=== PATIENT | female | born 1955 | race Caucasian/White ===

== ENCOUNTER 2016-08-30 07:20 | Inpatient (IN) | payer BC, OTHER ==
[~2016-08-30] VITALS: Ht 152.4 cm; Wt 79.2 kg
[~2016-08-30 07:20] MED LIST: ACCL20 PO; ACET-1256 PO; ALLDSR/24 PO; CALCTAB5 PO; GLC500 PO; IBUP-1451 PO; LEVA1.25 INH; LEVAAER2 INH; LORA-741 PO; MOME200A INH; MULT-506 PO; OMAL150S SC; PANT40TA PO; PRED10TA PO; TRAM-10 PO
[2016-08-30] MEDS ORDERED: AMPICILLIN/SULBACTAM SOD INJ 3,000 MG in SODIUM CHLORIDE 0.9% 100ML 100 ML IV STA (07:45)
[2016-08-30 08:17] LABS: BASO % 0.1 %; BASO ABS # 0.02 K/uL (0-0.2); COMPLETE YES; EOS % 1.6 %; HEMATOCRIT 38.4 % (37-47); IG% 0.4 %; LYMPH % 15.9 %; LYMPH ABS # 2.16 K/uL (1.2-3.4); MEAN CELL VOLUME 87.3 fL (80-100); MEAN CORPUSCULAR HEMOGLOBIN 29.3 pg (25-34); MEAN CORPUSCULAR HGB CONC 33.6 g/dl (32-36); MEAN PLATELET VOLUME 8.6 fL (7.4-10.4); MONO % 8.4 %; NEUT % 73.6 %; PLATELET COUNT 338 K/uL (130-400); WHITE BLOOD COUNT 13.62 K/uL (4.8-10.8)
[2016-08-30] MEDS ORDERED: CALC-354 PO (08:29)
[2016-08-30] MEDS ORDERED: FEXO1TAB58 PO (08:31)
--- NOTE | 2016-08-30 08:33 | DIAGNOSTIC IMAGING REPORT ---
RIGHT HAND 3 VIEWS CLINICAL HISTORY: Dog bite injury. Infection. FINDINGS: 3 views of the right hand are obtained. No prior studies are available for comparison at the time of dictation. The skeletal structures are osteopenic. No fracture is seen. There is negative ulnar variance. Mild osteoarthritic change is present involving the interphalangeal joints, the first metacarpophalangeal joint, and the first carpometacarpal joint. No erosive change is identified. There is soft tissue edema overlying the dorsal aspect of the hand. No subcutaneous gas is seen. No radiodense foreign body is identified. IMPRESSION: 1. Soft tissue edema with no acute bony abnormality seen in the right hand. 2. Osteopenia and arthritic change as above. Electronically signed by: Jonathan Juarez M.D. 08/30/2016 8:32 AM Dictated Date/Time: 08/30/2016 8:30 AM
[2016-08-30] MEDS ORDERED: [UNRECOGNIZED DRUG - CODE] PO (08:34)
[2016-08-30 08:37] LABS: BUN/CREATININE RATIO 23.4 (10-20); CREATININE 0.8 mg/dl (0.60-1.20); POTASSIUM 3.6 mmol/L (3.5-5.1)
[2016-08-30] MEDS ORDERED: ACCL20 PO (08:39)
[2016-08-30] MEDS ORDERED: VANCOMYCIN INJ 1,900 MG in SODIUM CHLORIDE 0.9% 250ML 250 ML IV STA (08:41)
[2016-08-30] MEDS ORDERED: VANCOMYCIN INJ 1,900 MG in SODIUM CHLORIDE 0.9% 500ML 500 ML IV SCH (08:41)
[2016-08-30] MEDS ORDERED: LEVA45AE INH (08:43)
[2016-08-30] MEDS ORDERED: LEVA1.258 INH (08:43)
[2016-08-30] MEDS ORDERED: ZOLP10TA6 PO (08:49)
[2016-08-30] MEDS ORDERED: FERR1TAB61 PO (08:49)
[2016-08-30] MEDS ORDERED: AMOX875T PO (08:51)
[2016-08-30] MEDS ORDERED: SUMA50TA15 PO (08:52)
[2016-08-30] MEDS ORDERED: SUMATRIPTAN SUCCINATE 50 MG TAB PO PRN (09:45)
[2016-08-30] MEDS ORDERED: LORAZEPAM 0.5 MG TAB PO PRN (09:45)
[2016-08-30] MEDS ORDERED: LEVALBUTEROL 1.25MG/3ML NEB INH PRN (09:45)
[2016-08-30] MEDS ORDERED: LEValbuterol HFA 15GM INHALER INH PRN (09:45)
[2016-08-30 09:49] VITALS: BP 139/82; PULSE 96; TEMP 36.5; O2SAT 98; Ht 152.4 cm; Wt 79.2 kg
[2016-08-30] MEDS ORDERED: OPTIRAY 320 IV PRN (10:30)
[2016-08-30 10:32] LABS: ESTIMATED AVERAGE GLUCOSE 103 mg/dl; HA1C FLAG Normal (Normal)
--- NOTE | 2016-08-30 10:34 | History and Physical ---
History & Physical Date & Time of Service: Aug 30, 2016 at 09:57 Chief Complaint: Dog Bite Rt Hand Primary Care Physician: Manuel Rose D.O.Int.Med. History of Present Illness Source: patient This is a 61 yo F with PMHx of allergic asthma, dysmetabolic syndrome, pernicious anemia, s/p R rotator cuff tear, GERD, migraine, osteoarthritis of multiple sites and insomnia who presents after 1 day of outpatient antibiotics for dog bite wound and progression of redness and swelling of the R hand. The patient notes she was bit on Tuesday around 0130 am by her pet budin. She reports the dog is blind and deaf so was unintentional. She went to urgent care yesterday and was prescribed Augmentin 875 mg, first dose taken yesterday at 10am. Since then her right hand has become more painful, redness has extended up to the middle of her forearm, and swelling has worsened; she can no longer make a fist with the hand due to swelling. Pt denies fever, sweats or chills. She denies any other complaints this morning. In the ED the patient was placed on vancomycin, wound culture sent. WBC is mildly elevated at 13.6, + tachycardic upon admission with HR =109, afebrile. She denies fevers at home although has been taking tylenol/ibuprofen around the clock for chronic pain. Past Medical/Surgical History Allergic Asthma Dysmetabolic syndrome GERD Osteoarthritis Insomnia Low back pain Pernicious anemia R rotator cuff tear s/p surgery Migraine Social History Smoking Status: Never Smoker Smokeless Tobacco Use: No Alcohol Use: none Drug Use: none Occupational Status: employed Immunizations History of Influenza Vaccine: N/A History of Tetanus Vaccine?: Yes History of Pneumococcal: Yes History of Hepatitis B Vaccine: Yes Multi-Drug Resistant Organisms History of MDRO: No Allergies Coded Allergies: Cephalosporins (Verified Allergy, Unknown, CEFAZOLIN ALLERGY, 08/30/16) Naproxen (Verified Allergy, Unknown, RASH. SHE TOLERATES MOTRIN., 08/30/16) Sulfa Drugs (Verified Allergy, Unknown, RASH, 08/30/16) Home Medications Scheduled Acetaminophen (Tylenol), 2 TAB PO TID Amoxicillin & Pot Clavulanate (Augmentin 875-125 mg), 1 TAB PO BID Calcium Carbonate-Cholecalcife (Caltrate 600+D), 1 TAB PO DAILY Ferrous Sulfate (Iron), Unknown Dose PO DAILY Fexofenadine-Pseudoephedrine (Cristiana-D 24 Hour Allergy), 1 TAB PO DAILY Ibuprofen Tab (Motrin), 1 TAB PO TID Metformin Hcl (Fortamet), 1,000 MG PO BID Mometasone Furoate-Formoterol (Dulera 200/5 Mcg), 1 AER INH BID Multivitamin (Multivitamin), 1 TAB PO QAM Omalizumab (Xolair), 1 DOSE SC MONTHLY Pantoprazole (Protonix), 40 MG PO QAM Zafirlukast (Zafirlukast), 20 MG PO BID Zolpidem Tartrate (Zolpidem Tartrate), 1 TAB PO HS Scheduled PRN Levalbuterol Hcl (Levalbuterol Hcl), 3 ML INH QID PRN for Shortness of Breath Levalbuterol Tartrate (Levalbuterol Tartrate Hfa), 2 PUFFS INH Q4 PRN for Shortness of Breath Lorazepam (Ativan), 0.5 MG PO HS PRN for Sleep Sumatriptan Succinate (Imitrex), 50 MG PO DAILY PRN for Headache Tramadol (Ultram), 50 MG PO Q8H PRN for Pain Review of Systems Constitutional: No chills, No fever, No sweats ENT: No sore throat, No tinnitus Respiratory: No cough, No shortness of breath, No sputum Cardiovascular: No chest pain, No palpitations Abdomen: No constipation, No diarrhea, No nausea, No pain, No vomiting Musculoskeletal: + joint pain (chronic low back), + problem reported (R hand wound - see HPI), + swelling, No calf pain Genitourinary - Female: No dysuria Neurologic: No numbness/tingling Psychiatric: + anxiety Endocrine: No problem reported (Not diabetic but taking metformin for hyperglycemia associated with previous steriod use for allergic asthma) Physical Exam Vital Signs Date Time Temp Pulse Resp B/P Pulse Ox O2 Delivery O2 Flow Rate FiO2 08/30/16 09:27 88 18 139/82 97 Room Air 08/30/16 07:29 36.5 109 20 151/93 94 Room Air General Appearance: WD/WN, no apparent distress, + obese Head: normocephalic, atraumatic Eyes: PERRL, EOMI ENT: hearing grossly normal, pharynx normal Neck: supple, no JVD Respiratory/Chest: lungs clear, no respiratory distress, no accessory muscle use Cardiovascular: normal peripheral pulses, + tachycardia, + pertinent finding ( regular rhythm. HR= ~90s during examination) Abdomen/GI: normal bowel sounds, non tender, soft Extremities/Musculoskelatal: no calf tenderness, no pedal edema, + pertinent finding (R hand puncture wound on dorsal aspect of the hand overlying second metatarsal, no drainage. + erythema extending from mid forearm to all DIP joints, + pain with palpation and passive/active ROM, + edema of hand and wrist. Margin outlined in black ink. ) Neurologic/Psych: alert, oriented x 3 Skin: normal color, warm/dry Diagnostics Laboratory Results Results Past 24 Hours Test 08/30/16 08:05 Range/Units White Blood Count 13.62 4.8-10.8 K/uL Red Blood Count 4.40 4.2-5.4 M/uL Hemoglobin 12.9 12.0-16.0 g/dL Hematocrit 38.4 37-47 % Mean Corpuscular Volume 87.3 80-100 fL Mean Corpuscular Hemoglobin 29.3 25-34 pg Mean Corpuscular Hemoglobin Concent 33.6 32-36 g/dl Platelet Count 338 130-400 K/uL Mean Platelet Volume 8.6 7.4-10.4 fL Neutrophils (%) (Auto) 73.6 % Lymphocytes (%) (Auto) 15.9 % Monocytes (%) (Auto) 8.4 % Eosinophils (%) (Auto) 1.6 % Basophils (%) (Auto) 0.1 % Neutrophils # (Auto) 10.03 1.4-6.5 K/uL Lymphocytes # (Auto) 2.16 1.2-3.4 K/uL Monocytes # (Auto) 1.14 0.11-0.59 K/uL Eosinophils # (Auto) 0.22 0-0.5 K/uL Basophils # (Auto) 0.02 0-0.2 K/uL RDW Standard Deviation 42.9 36.4-46.3 fL RDW Coefficient of Variation 13.3 11.5-14.5 % Immature Granulocyte % (Auto) 0.4 % Immature Granulocyte # (Auto) 0.05 0.00-0.02 K/uL Sodium Level 138 136-145 mmol/L Potassium Level 3.6 3.5-5.1 mmol/L Chloride Level 102 98-107 mmol/L Carbon Dioxide Level 24 21-32 mmol/L Anion Gap 12.0 3-11 mmol/L Blood Urea Nitrogen 19 7-18 mg/dl Creatinine 0.80 0.60-1.20 mg/dl Est Creatinine Clear Calc Drug Dose 68.1 ml/min Estimated GFR () 92.2 Estimated GFR (Non- 79.6 BUN/Creatinine Ratio 23.4 10-20 Random Glucose 98 70-99 mg/dl Calcium Level 9.0 8.5-10.1 mg/dl Microbiology Results 08/30/16 Gram Stain, Received Pending 08/30/16 Wound Culture, Received Pending Diagnostic Radiology RIGHT HAND 3 VIEWS CLINICAL HISTORY: Dog bite injury. Infection. FINDINGS: 3 views of the right hand are obtained. No prior studies are available for comparison at the time of dictation. The skeletal structures are osteopenic. No fracture is seen. There is negative ulnar variance. Mild osteoarthritic change is present involving the interphalangeal joints, the first metacarpophalangeal joint, and the first carpometacarpal joint. No erosive change is identified. There is soft tissue edema overlying the dorsal aspect of the hand. No subcutaneous gas is seen. No radiodense foreign body is identified. IMPRESSION: 1. Soft tissue edema with no acute bony abnormality seen in the right hand. 2. Osteopenia and arthritic change as above. Electronically signed by: Jonathan Juarez M.D. 08/30/2016 8:32 AM Dictated Date/Time: 08/30/2016 8:30 AM The status of this report is Signed. Impression Assessment and Plan This is a 61 yo F with PMHx of allergic asthma, dysmetabolic syndrome, pernicious anemia, s/p R rotator cuff tear, GERD, migraine, osteoarthritis of multiple sites and insomnia who presents after 1 day of outpatient antibiotics for dog bite wound and progression of redness and swelling of the R hand. R hand dog bite wound, meets SEPSIS Criteria - Admit to med/surg - Failed outpatient tx with augmentin yesterday with increased erythema and edema - Xray of the hand without bony abnormality. - Check CT R hand and wrist w/ contrast to evaluate for abscess - Received 1 dose vanc in the ED, will switch to Unasyn 3 g Q6H - Blood cultures not obtained in the ED. Will order now, follow - Follow wound culture - Check Lactic acid now and again in 4 hours. - WBC elevated at 13.61, afebrile since admitted, no reported fevers at home. Also has tylenol and ibuprofen on board for chronic low back pain - so it is possible that fevers in the past 24 hours have been masked with Q8H dosing. - Analgesia with morphine sulfate IV2 mg Q3H prn. - Will consult orthopedics for possible surgical intervention and make pt NPO. PT requesting Dr. Teran as he completed her R rotator cuff tear. - NSS @ 100mL/hr Dysmetabolic Syndrome - Pt taking metformin 1000mg BID since 2007 when she was on high dose prednisone for allergic asthma and developed hyperglycemia. Will hold medication for now for CT hand with contrast. Allergic Rhinitis - Lung exam clear today - will continue all home meds and inhalers: xopenex inh and accolate tabs daily. GERD - Cont protonix 40 mg daily Migraine - Cont imitrex prn Insomnia - Cont ativan 0.5 mg QHS. DVT ppx: OOB, Teds, SCDs Dispostion: From home, await ortho recommendations. Level of Care Med/Surg Resuscitation Status FULL RESUSCITATION VTE Prophylaxis VTE Risk Assessment Done? Y/N: Yes Risk Level: Low Given or contraindicated: T.E.D. Stockings, SCD's Reviewed: Pt Seen/Exam by Me, HO Notes, Labs, RAD History Agree with HPI/ROS/PMH/PSH/MEDS/ALL/SH/FH as above. Pt had CT extremity negative for abscess. Seen by Ortho and I discussed case with him. No indication for surgical drainage at this time. Afebrile. Swelling and erythema already improving since this AM. All Other Systems: Reviewed and Negative General Appearance: WD/WN, no apparent distress Eye Exam: bilateral eye normal inspection Ears, Nose, Throat: hearing grossly normal Neck: trachea midline Respiratory: lungs clear, normal breath sounds, no respiratory distress, no accessory muscle use Cardiovascular: regular rate, rhythm, no edema, no gallop, no murmur Gastrointestinal: normal bowel sounds, non tender, soft, no organomegaly Extremities: other (right hand with 2+ edema of entire hand and fingers, and distal forearm 1+ edema, erythema over all fingers and hand and distal forearm already receding inside marked line from this AM, sensation intact distally, small puncture wound with scant drainage on dorsum of hand) Neurologic/Psychiatric: alert, normal mood/affect, oriented x 3 Skin Characteristics: other (erythema as above) Lymphatic: no adenopathy (no TODD in rt axilla or rt epitrochlear region) Assessment/Plan AGree with PA A/P as above with the following exceptions/additions: Dog bite cellulitis of the hand and forearm, failed outpatient Augmentin. CT hand and arm without abscess. Meets sepsis criteria with elevated WBC count, tachycardia, lactate elevated at 2.2. 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
[2016-08-30 10:43] VITALS: O2SAT 98
[2016-08-30] MEDS ORDERED: MoRPHine SULFATE 2 MG/ML CARP IV PRN (10:45)
[2016-08-30] MEDS ORDERED: DiphenhydrAMINE HCL 50 MG/ML VIAL IV STA (10:47)
--- NOTE | 2016-08-30 11:07 | EMERGENCY ROOM VISIT NOTE ---
History First contact with patient: 07:34 Chief Complaint: BITE Stated Complaint: DOG BITE RT HAND History of Present Illness The patient is a 61 year old female who presents to the Emergency Room via private vehicle with complaints of "dog bite right hand". The patient states that yesterday around 1:30 AM she was accidentally bit by her dog. She notes that the dog's rabies vaccination series are up-to-date. The dog is roughly 20 pounds in weight. She states that she went to [facility] yesterday around 10 AM and was placed upon Augmentin 875 twice a day for 10 days. The erythematous region on the right dorsal aspect of the hand was outlined with purple marker. She points to a 1 cm linear laceration of the dorsal aspect of the hand indicating the puncture wound. She now notes that the redness has extended up to the midforearm. She rates the pain as a 4/10 if she moves the right hand. She denies any numbness/tingling or other symptoms. She denies any fevers or chills. Patient can tolerate penicillins. Review of Systems A complete 10-point Review of Systems was discussed with the patient, with pertinent positives and negatives listed in the History of Present Illness. All remaining Review of Systems questions can be considered negative unless otherwise specified. Past Medical/Surgical History Medical Problems: (1) Dog bite wound Family History Diabetes, high blood pressure, cancer, lung disease Social History Smoking Status: Never Smoker Smokeless Tobacco Use: No Alcohol Use: none Drug Use: none Occupation Status: employed Social History: Patient lives at home with . She denies alcohol or tobacco use. Current/Historical Medications Scheduled Acetaminophen (Tylenol), 2 TAB PO TID Amoxicillin & Pot Clavulanate (Augmentin 875-125 mg), 1 TAB PO BID Calcium Carbonate-Cholecalcife (Caltrate 600+D), 1 TAB PO DAILY Ferrous Sulfate (Iron), Unknown Dose PO DAILY Fexofenadine-Pseudoephedrine (Cristiana-D 24 Hour Allergy), 1 TAB PO DAILY Ibuprofen Tab (Motrin), 1 TAB PO TID Metformin Hcl (Fortamet), 1,000 MG PO BID Mometasone Furoate-Formoterol (Dulera 200/5 Mcg), 1 AER INH BID Multivitamin (Multivitamin), 1 TAB PO QAM Omalizumab (Xolair), 1 DOSE SC MONTHLY Pantoprazole (Protonix), 40 MG PO QAM Zafirlukast (Zafirlukast), 20 MG PO BID Zolpidem Tartrate (Zolpidem Tartrate), 1 TAB PO HS Scheduled PRN Levalbuterol Hcl (Levalbuterol Hcl), 3 ML INH QID PRN for Shortness of Breath Levalbuterol Tartrate (Levalbuterol Tartrate Hfa), 2 PUFFS INH Q4 PRN for Shortness of Breath Lorazepam (Ativan), 0.5 MG PO HS PRN for Sleep Sumatriptan Succinate (Imitrex), 50 MG PO DAILY PRN for Headache Tramadol (Ultram), 50 MG PO Q8H PRN for Pain Allergies Coded Allergies: Cephalosporins (Verified Allergy, Unknown, CEFAZOLIN ALLERGY, 08/30/16) Naproxen (Verified Allergy, Unknown, RASH. SHE TOLERATES MOTRIN., 08/30/16) Sulfa Antibiotics (Verified Allergy, Unknown, RASH, 08/30/16) Physical Exam Vital Signs Date Time Temp Pulse Resp B/P Pulse Ox O2 Delivery O2 Flow Rate FiO2 08/30/16 09:49 36.5 96 18 139/82 98 Room Air 08/30/16 09:27 88 18 139/82 97 Room Air 08/30/16 07:29 36.5 109 20 151/93 94 Room Air Pain Rating (0-10): 0 Physical Exam VITAL SIGNS - Vital signs and nursing notes were reviewed. Patient is afebrile , she has a blood pressure of 151/93, she is tachycardic at a rate of 109 bpm and is saturating well on room air at 94%. GENERAL -61-year-old female appearing her stated age who is in no acute distress. Communicates well with provider and answers questions appropriately. SKIN - there is diffuse erythema extending from the mid right forearm to the distal fingertips. There is a circular purple outline demarcating was believed to be yesterday's previous line of erythema. This has extended beyond this region by at least 10 cm. There is also tenderness in the right shoulder. No erythema proximally beyond the right elbow. HEAD - NC/AT. NECK - Neck with FROM. Supple to palpation. No meningeal signs. LUNGS - Chest wall symmetric without accessory muscle use, intercostals retractions, or central cyanosis. Normal vesicular breath sounds CTA B/L. No wheezes, rales, or rhonchi appreciated. CARDIAC - RRR with S1/S2. No murmur, rubs, or gallops appreciated. EXTREMITIES - No clubbing or peripheral cyanosis. No pretibial edema present. Patient is vascularly intact in the right upper extremity. There is tenderness to palpation overlying the erythematous regions of the dorsal aspect of the right hand. Patient neurovascularly intact. Medical Decision & Procedures ER Provider Diagnostic Interpretation: RIGHT HAND 3 VIEWS CLINICAL HISTORY: Dog bite injury. Infection. FINDINGS: 3 views of the right hand are obtained. No prior studies are available for comparison at the time of dictation. The skeletal structures are osteopenic. No fracture is seen. There is negative ulnar variance. Mild osteoarthritic change is present involving the interphalangeal joints, the first metacarpophalangeal joint, and the first carpometacarpal joint. No erosive change is identified. There is soft tissue edema overlying the dorsal aspect of the hand. No subcutaneous gas is seen. No radiodense foreign body is identified. IMPRESSION: 1. Soft tissue edema with no acute bony abnormality seen in the right hand. 2. Osteopenia and arthritic change as above. Electronically signed by: Jonathan Juarez M.D. 08/30/2016 8:32 AM Dictated Date/Time: 08/30/2016 8:30 AM Laboratory Results 08/30/16 08:05 Red Blood Count 4.40, Mean Corpuscular Volume 87.3, Mean Corpuscular Hemoglobin 29.3, Mean Corpuscular Hemoglobin Concent 33.6, Mean Platelet Volume 8.6, Neutrophils (%) (Auto) 73.6, Lymphocytes (%) (Auto) 15.9, Monocytes (%) (Auto) 8.4, Eosinophils (%) (Auto) 1.6, Basophils (%) (Auto) 0.1, Neutrophils # (Auto) 10.03, Lymphocytes # (Auto) 2.16, Monocytes # (Auto) 1.14, Eosinophils # (Auto) 0.22, Basophils # (Auto) 0.02 08/30/16 08:05 Test 08/30/16 08:05 White Blood Count 13.62 K/uL (4.8-10.8) Red Blood Count 4.40 M/uL (4.2-5.4) Hemoglobin 12.9 g/dL (12.0-16.0) Hematocrit 38.4 % (37-47) Mean Corpuscular Volume 87.3 fL (80-100) Mean Corpuscular Hemoglobin 29.3 pg (25-34) Mean Corpuscular Hemoglobin Concent 33.6 g/dl (32-36) Platelet Count 338 K/uL (130-400) Mean Platelet Volume 8.6 fL (7.4-10.4) Neutrophils (%) (Auto) 73.6 % Lymphocytes (%) (Auto) 15.9 % Monocytes (%) (Auto) 8.4 % Eosinophils (%) (Auto) 1.6 % Basophils (%) (Auto) 0.1 % Neutrophils # (Auto) 10.03 K/uL (1.4-6.5) Lymphocytes # (Auto) 2.16 K/uL (1.2-3.4) Monocytes # (Auto) 1.14 K/uL (0.11-0.59) Eosinophils # (Auto) 0.22 K/uL (0-0.5) Basophils # (Auto) 0.02 K/uL (0-0.2) RDW Standard Deviation 42.9 fL (36.4-46.3) RDW Coefficient of Variation 13.3 % (11.5-14.5) Immature Granulocyte % (Auto) 0.4 % Immature Granulocyte # (Auto) 0.05 K/uL (0.00-0.02) Anion Gap 12.0 mmol/L (3-11) Est Creatinine Clear Calc Drug Dose 68.1 ml/min Estimated GFR () 92.2 Estimated GFR (Non- 79.6 BUN/Creatinine Ratio 23.4 (10-20) Estimated Average Glucose 103 mg/dl Hemoglobin A1c 5.2 % (4.5-5.6) Calcium Level 9.0 mg/dl (8.5-10.1) Medications Administered Medications (Trade) Dose Ordered Sig/[place] Route Start Time Stop Time Status Last Admin Dose Admin Ampicillin Sodium/ Sulbactam Sodium 3000 mg/Sodium Chloride 108 ml @ 200 mls/hr NOW STAT IV 08/30/16 07:45 08/30/16 08:17 DC 08/30/16 08:08 200 MLS/HR Vancomycin HCl/ Sodium Chloride (Vancomycin Inj/ Nss 500ml) 538 ml @ 200 mls/hr 0841 IV 08/30/16 08:41 08/30/16 15:16 DC 08/30/16 09:27 200 MLS/HR Tramadol HCl 50 mg 50 mg Q8H PRN PO 08/30/16 09:45 09/29/16 09:44 08/30/16 13:26 50 MG Sodium Chloride (Nss 1000ml) 1,000 ml @ 100 mls/hr Q10H IV 08/30/16 10:15 09/29/16 10:14 08/30/16 19:41 100 MLS/HR Medical Decision Patient was seen and evaluated as above. After obtaining a thorough history and physical examination, IV access was obtained and a CBC, PRP, hand 3 view minimum, 3 g of Unasyn and wound culture secondary to subjective and objective examination findings. I did order a wound care set up to thoroughly irrigate the wound. After verifying consent the 1 cm puncture wound on the dorsal aspect of the right hand was thoroughly irrigated under pressure with normal saline. Prior to doing this a culture was obtained of the purulent material. 3 g of Unasyn was ordered secondary to objective failure on Augmentin. The patient's blood work revealed a leukocytosis of 13.62, elevated BUN and anion gap. An elevated lactic acid. Calcium was within normal limits. The case was discussed with my attending and it was decided that the patient would benefit from inpatient management and IV antibiotics. Patient noted that she would like to also potentially be seen by Dr. Teran her shoulder surgeon as she was concerned about potential infection progressing to the shoulder. The case was discussed with the hospitalist at 9:05 PM who agreed to admit the patient. Please for further workup regarding her stay. At this time I do believe that inpatient management, IV antibiotics is warranted for her dog bite infection. In evaluation treatment of this patient the following differential diagnoses were entertained: Cellulitis, retained foreign body, abscess, sepsis, among others. Impression Primary Impression: Dog bite Additional Impressions: Cellulitis of hand, right Cellulitis of forearm, right Leukocytosis Departure Information Dispostion Admitted as an inpatient Referrals Manuel Rose D.O.Int.Med. (PCP) Patient Instructions My [facility] Problem Qualifiers Primary Impression: Dog bite Encounter type: initial encounter Qualified Codes: W54.0XXA - Bitten by dog , initial encounter Additional Impressions:
[2016-08-30 11:15] VITALS: BP 142/85; PULSE 102; TEMP 36.8; O2SAT 96
[2016-08-30] MEDS ORDERED: IV FLUIDS COMPLETED PRN (12:00)
[2016-08-30] MEDS: SODIUM CHLORIDE 0.9% 1000ML 1,000 ML IV SCH ×2 (13:11→19:41)
[2016-08-30] MEDS ORDERED: ACETAMINOPHEN 500 MG TAB PO ONE (13:14)
[2016-08-30] MEDS: TRAMADOL HCL 50 MG TAB PO PRN (13:26)
[2016-08-30] MEDS: ACETAMINOPHEN 500 MG TAB PO SCH ×2 (13:26→20:29)
[2016-08-30] MEDS ORDERED: IBUPROFEN 800 MG TAB PO SCH (14:00)
[2016-08-30] MEDS: AMPICILLIN/SULBACTAM SOD INJ 3,000 MG in SODIUM CHLORIDE 0.9% 100ML 100 ML IV SCH ×2 (14:03→19:40)
--- NOTE | 2016-08-30 14:06 | DIAGNOSTIC IMAGING REPORT ---
CT right hand and wrist UPPER EXTREMITY WITH CLINICAL HISTORY: R hand/wrist for abscess infection TECHNIQUE: Transaxial acquisition with multi axial reformatted images COMPARISON STUDY: Routine series dated 08/30/2016 FINDINGS: Mild generalized subcutaneous edematous change primarily about the distal aspect of the ulna and within the soft tissues dorsal to the metacarpals and medial to the breast. No evidence for drainable abscess or collection. Small punctate air pocket distal dorsal to the distal aspect fifth metacarpal. No evidence for drainable abscess or collection. IMPRESSION: 1. Moderate generalized cellulitis adjacent to the distal ulna as well as the lateral aspect of the osseous structures of the hand and wrist. 2. 1 and possibly 2 very small air pockets immediately dorsal to the distal fifth metacarpal. 3. No evidence for drainable abscess or collection. 4. No evidence for acute bony involvement Electronically signed by: Tenzin Alcazar M.D. 08/30/2016 2:05 PM Dictated Date/Time: 08/30/2016 1:57 PM
[2016-08-30 16:17] VITALS: BP 131/82; PULSE 84; TEMP 37.3; O2SAT 94
--- NOTE | 2016-08-30 18:47 | ORTHOPEDIC CONSULTATION ---
DATE OF CONSULTATION: 08/30/2016 CHIEF COMPLAINT: Dog bite injury to the right hand. HISTORY OF PRESENT ILLNESS: Nadine is a very pleasant 61-year-old female who I did a recent right rotator cuff repair on. She has done well with that. Unfortunately, she was with her own dog on Tuesday when she said that the dog became frightened and bit her right hand. Her dog is blind and deaf, so she feels that it was an accident. She initially had redness around the dorsal aspect of her hand. She went to [facility], was given Augmentin 875. She has been taking that but unfortunately, the redness has been progressing. The redness is worse today and she came to the Emergency Room and was admitted to the medical service for a dog bite wound and cellulitis and started on IV antibiotics. She also had a CT scan of her right hand which showed no evidence of an abscess. Orthopedics was consulted to help evaluate and treat. PAST SURGICAL HISTORY: Significant for allergies, metabolic syndrome, GERD, osteoarthritis, insomnia, low back pain, anemia, migraine headaches. CURRENT MEDICATIONS: Include multivitamins, Protonix, Accolate, Ambien, Tylenol, Motrin, Unasyn, morphine, Xopenex, Ativan, Imitrex, Ultram for pain. ALLERGIES: INCLUDE CEPHALOSPORINS, NAPROSYN AND SULFA DRUGS. FAMILY HISTORY: Noncontributory. SOCIAL HISTORY: She denies any tobacco or IV drug use. She is currently employed. REVIEW OF SYSTEMS: She complains of right hand pain and cellulitis. All other pertinent review of systems are negative. PHYSICAL EXAMINATION: There is a small 1 inch laceration over the extensor tendon of the index finger on the dorsal aspect of her right hand. This appears to be almost closed. I am unable to get any purulent discharge from the incision. There is redness along the dorsal aspect of her hand and extends up about a third of the way up her forearm. She does have active flexion and extension of all of her fingers and her sensation is intact throughout. A CT scan of the right hand does show some air pockets from the bite, but no evidence of abscess collection. X-rays of the right hand show no evidence of fracture. IMPRESSION: Dog bite wound to the right hand with cellulitis. PLAN: Will keep her on the IV Unasyn for now. Within a couple of days this should subside. She should be able to be discharged on oral antibiotics. I see no indications for surgical intervention at this time. If her symptoms do worsen and are not improving please feel free to contact me personally at [phone]. I will follow up as needed in the office for this. This should get better with antibiotics.
[2016-08-30] MEDS ORDERED: NURSING VERBAL MED ORDER ONE (19:15)
[2016-08-30] MEDS: IBUPROFEN 800 MG TAB PO SCH (19:39)
[2016-08-30] MEDS: OXYCODONE/ACETAMINOPHEN 5-325 TAB PO PRN ×2 (19:40→23:46)
[2016-08-30] MEDS ORDERED: VANCOMYCIN CONSULT ACTIVE PRN (20:45)
[2016-08-30 21:14] LABS: PROTHROMBIN TIME (PATIENT) 10.7 SECONDS (9.0-12.0)
[2016-08-30] MEDS: ZAFIRLUKAST TAB 20 MG TAB PO SCH (21:36)
[2016-08-30] MEDS: ENOXAPARIN 40 MG/0.4 ML SYR SQ SCH (22:23)
[2016-08-30] MEDS: ZOLPIDEM TARTRATE 10 MG TAB PO SCH (22:23)
--- NOTE | 2016-08-30 23:12 | Pharmacy Progress Note ---
Pharmacy Antibiotic Consult Date of Service: Aug 30, 2016. Pharmacy Dosing Scope Pharmacy is consulted to initiate vancomycin IV dosing therapy, order appropriate labs and adjust drug dose/frequency. Subjective The patient is a 61 year old female admitted on Aug 30, 2016 at 10:15 with cellulitis of right hand from recent dog bite. Objective Height (Feet): 5 Height (Inches): 0.00 Weight (Kilograms): 79.200 Lab Results (24hrs): Laboratory Tests Test 08/30/16 08:05 BUN/Creatinine Ratio 23.4 Blood Urea Nitrogen 19 mg/dl Creatinine 0.80 mg/dl White Blood Count 13.62 K/uL Red Blood Count 4.40 M/uL Hemoglobin 12.9 g/dL Hematocrit 38.4 % Mean Corpuscular Volume 87.3 fL Mean Corpuscular Hemoglobin 29.3 pg Mean Corpuscular Hemoglobin Concent 33.6 g/dl Platelet Count 338 K/uL Mean Platelet Volume 8.6 fL Neutrophils (%) (Auto) 73.6 % Lymphocytes (%) (Auto) 15.9 % Monocytes (%) (Auto) 8.4 % Eosinophils (%) (Auto) 1.6 % Basophils (%) (Auto) 0.1 % Neutrophils # (Auto) 10.03 K/uL Lymphocytes # (Auto) 2.16 K/uL Monocytes # (Auto) 1.14 K/uL Eosinophils # (Auto) 0.22 K/uL Basophils # (Auto) 0.02 K/uL Micro Results: Blood cx X 2, and wound drainage cx pending. Recent Pertinent Medications Unasyn 3gm IV q 6h Assessment & Plan Pt is admitted with cellulitis and possible sepsis from a dog bite on her right hand. Pt was started on Augmentin as an out patient with no improvement. Vancomycin: Loading dose: 1900 mg IV X 1 dose (~24mg/kg) then: 1100 mg IV every 16 hours. Goal trough level estimate: between 15 - 20 mcg/mL. Peak and trough or random level has been ordered for: 09/01 prior to 0800 dose. Pharmacy will continue to follow and will adjust dose/frequency as necessary. Thank you
[2016-08-30 23:18] VITALS: BP 125/75; PULSE 97; TEMP 37.2; O2SAT 94
[2016-08-31] MEDS ORDERED: VANCOMYCIN INJ 1,100 MG in SODIUM CHLORIDE 0.9% 250ML 250 ML IV SCH ×2
[2016-08-31] MEDS: AMPICILLIN/SULBACTAM SOD INJ 3,000 MG in SODIUM CHLORIDE 0.9% 100ML 100 ML IV SCH ×4 (02:14→20:24)
[2016-08-31] MEDS: SODIUM CHLORIDE 0.9% 1000ML 1,000 ML IV SCH (05:42)
[2016-08-31 06:17] LABS: BASO % 0.2 %; BASO ABS # 0.02 K/uL (0-0.2); COMPLETE YES; HEMATOCRIT 34.8 % (37-47); IG% 0.5 %; LYMPH % 22.9 %; LYMPH ABS # 2.03 K/uL (1.2-3.4); MEAN CELL VOLUME 87.7 fL (80-100); MEAN CORPUSCULAR HGB CONC 31.9 g/dl (32-36); MEAN PLATELET VOLUME 8.6 fL (7.4-10.4); MONO % 7.4 %; PLATELET COUNT 295 K/uL (130-400); RED BLOOD COUNT 3.97 M/uL (4.2-5.4); WHITE BLOOD COUNT 8.88 K/uL (4.8-10.8)
[2016-08-31 06:49] LABS: BUN/CREATININE RATIO 15.3 (10-20); CALCIUM 7.7 mg/dl (8.5-10.1); CREATININE 0.58 mg/dl (0.60-1.20); POTASSIUM 3.2 mmol/L (3.5-5.1)
[2016-08-31 07:07] VITALS: BP 135/78; PULSE 70; TEMP 37.2; O2SAT 95
[2016-08-31] MEDS ORDERED: POTASSIUM CHLORIDE 10 MEQ TABCR PO ONE (07:30)
[2016-08-31] MEDS ORDERED: ALLEGRA D PO SCH ×2 (09:00→10:00)
[2016-08-31] MEDS: ZAFIRLUKAST TAB 20 MG TAB PO SCH ×2 (09:03→21:12)
[2016-08-31] MEDS: ACETAMINOPHEN 500 MG TAB PO SCH ×3 (09:04→21:12)
[2016-08-31] MEDS: IBUPROFEN 800 MG TAB PO SCH ×3 (09:04→17:50)
[2016-08-31] MEDS: PANTOprazole SOD 40 MG TAB PO SCH (09:04)
[2016-08-31] MEDS: MULTIVITAMIN TAB PO SCH (09:05)
--- NOTE | 2016-08-31 10:27 | Hospitalist Progress Note ---
Hospitalist Progress Note Date of Service Aug 31, 2016. Subjective Pt evaluation today including: conversation w/ patient, physical exam, chart review, lab review, review of studies, review of inpatient medication list Voiding: no voiding problems Pt got a migraine BLOOM (her usual) after taking the percocet. States this usually happens with opioids which is why she generally avoids them. Not nauseated, received Imitrex and now is starting to feel better. Hand less swollen and less painful. Afebrile. Strongly requesting for discharge first thing tomorrow AM Constitutional: No fever ENT: + problem reported (headache) Respiratory: No shortness of breath Cardiovascular: No chest pain Abdomen: No diarrhea, No nausea, No pain, No vomiting Musculoskeletal: + joint pain (chronic OA), + swelling (right hand) Skin: No rash All Other Systems: Reviewed and Negative Objective Vital Signs Date Time Temp Pulse Resp B/P Pulse Ox O2 Delivery O2 Flow Rate FiO2 08/31/16 07:45 Room Air 08/31/16 07:07 37.2 70 16 135/78 95 Room Air 08/30/16 23:40 Room Air 08/30/16 23:18 37.2 97 18 125/75 94 Room Air 08/30/16 16:17 37.3 84 18 131/82 94 Room Air 08/30/16 16:15 Room Air 08/30/16 11:15 36.8 102 18 142/85 96 Room Air 08/30/16 11:15 Room Air 08/30/16 10:43 94 116/80 98 Physical Exam General Appearance: WD/WN, no apparent distress Eyes: normal inspection, sclerae normal ENT: hearing grossly normal Neck: trachea midline Respiratory/Chest: lungs clear, normal breath sounds, no respiratory distress, no accessory muscle use Cardiovascular: regular rate, rhythm, no edema, no gallop, no murmur Abdomen: normal bowel sounds, non tender, soft, no organomegaly, no pulsatile mass Extremities: + pertinent finding (right hand with much less erythema and edema than yesterday, forearm with near resolution of edema but still with mild erythema and warmth, ROM of fingers and wrist much improved, NVI in fingers) Neurologic/Psychiatric: alert, normal mood/affect, oriented x 3 Skin: + rash (erythema as above in right hand), + pertinent finding (1 cm laceration dorsal right hand healing, no active drainage) Laboratory Results Last 24 Hours Test 08/30/16 10:41 08/30/16 18:52 08/30/16 20:54 08/31/16 06:05 Lactic Acid Level 2.2 mmol/L 1.0 mmol/L Prothrombin Time 10.7 SECONDS Prothromb Time International Ratio 1.0 White Blood Count 8.88 K/uL Red Blood Count 3.97 M/uL Hemoglobin 11.1 g/dL Hematocrit 34.8 % Mean Corpuscular Volume 87.7 fL Mean Corpuscular Hemoglobin 28.0 pg Mean Corpuscular Hemoglobin Concent 31.9 g/dl Platelet Count 295 K/uL Mean Platelet Volume 8.6 fL Neutrophils (%) (Auto) 66.0 % Lymphocytes (%) (Auto) 22.9 % Monocytes (%) (Auto) 7.4 % Eosinophils (%) (Auto) 3.0 % Basophils (%) (Auto) 0.2 % Neutrophils # (Auto) 5.86 K/uL Lymphocytes # (Auto) 2.03 K/uL Monocytes # (Auto) 0.66 K/uL Eosinophils # (Auto) 0.27 K/uL Basophils # (Auto) 0.02 K/uL RDW Standard Deviation 43.3 fL RDW Coefficient of Variation 13.3 % Immature Granulocyte % (Auto) 0.5 % Immature Granulocyte # (Auto) 0.04 K/uL Sodium Level 144 mmol/L Potassium Level 3.2 mmol/L Chloride Level 109 mmol/L Carbon Dioxide Level 26 mmol/L Anion Gap 9.0 mmol/L Blood Urea Nitrogen 9 mg/dl Creatinine 0.58 mg/dl Est Creatinine Clear Calc Drug Dose 94.8 ml/min Estimated GFR () 115.3 Estimated GFR (Non- 99.5 BUN/Creatinine Ratio 15.3 Random Glucose 70 mg/dl Calcium Level 7.7 mg/dl Diagnostic Results RUN DATE: 08/31/16 [facility] LAB PAGE 1 RUN TIME: 913 Specimen Inquiry PATIENT: JOSE HERNANDEZ LOC: [facility] U # : [id number] AGE/SX: 61/F ROOM: [facility] REG : 08/30/[address]: Roxana Bull MD : [id number] BED: 2 DIS : STATUS: ADM IN TLOC: SPEC #: [id number] ANDREA: 08/30/16 STATUS: RES REQ #: [id number] RECD: 08/30/[address]: Db Aguilera PA -C SOURCE: DRAIN-SURF ENTR: 08/30/16 [facility] DR: Jessica Angeles M.D. SPDESC: HAND RIGHT Manuel Rose D.O.Int.Med. ORDERED: SURF WND CU/SMR COMMENTS: Comments to Corrective Therapist sent to lab Has Specimen Been Obtained/Collected? Y Procedure Result Verified Site GRAM STAIN Final 08/30/16-1404 RESULT FEW POLYS NO ORGANISMS SEEN SURFACE WOUND CULTURE Preliminary 08/31/16-09 Organism 1 GRAM NEGATIVE BACILLI QUANITY FEW SENS SENSITIVITIES DEPENDENT ON FURTHER IDENTIFICATION Assessment and Plan This is a 61 yo F with PMHx of allergic asthma, dysmetabolic syndrome, pernicious anemia, migraines, s/p R rotator cuff tear and repair, GERD, migraine , osteoarthritis of multiple sites and insomnia who presents with dog bite cellulitis of the right hand, sepsis. Dog bite cellulitis of the hand and forearm, failed outpatient Augmentin. Xray of the hand without bony abnormality CT hand and arm without abscess. Meets sepsis criteria with elevated WBC count, tachycardia, lactate elevated at 2.2. Lactate improved to 1.0, WBC count down to 8.8 today. Clinically much improved on exam as well. MRSA swab nose positive, now growing GNRs on Wound cx. Could be Pasturella. 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 -d/c IVFs -plan to d/c to home likely tomorrow if continues to improve, will be on Augmentin and doxy x at least 10 days -elevate limb Dysmetabolic Syndrome - Pt taking metformin 1000mg BID since 2007 when she was on high dose prednisone for allergic asthma and developed hyperglycemia. Will hold medication for now for CT hand with contrast. Allergic Rhinitis, Extrinsic asthma - Lung exam clear today - will continue all home meds and inhalers: xopenex inh and accolate tabs daily. Migraine headache- Improving now with Imitrex -avoid triggers -continue motrin, tylenol prn GERD - Cont protonix 40 mg daily Insomnia - Cont ativan 0.5 mg QHS. DVT ppx: Lovenox Dispostion: to home likely tomorrow AM
[2016-08-31] MEDS ORDERED: DXY100 PO (10:29)
[2016-08-31] MEDS: VANCOMYCIN INJ 1,200 MG in SODIUM CHLORIDE 0.9% 250ML 250 ML IV SCH (11:27)
[2016-08-31 15:26] VITALS: BP 151/78; PULSE 70; TEMP 37; O2SAT 97
[2016-08-31] MEDS: TRAMADOL HCL 50 MG TAB PO PRN (16:03)
[2016-08-31] MEDS: ZOLPIDEM TARTRATE 10 MG TAB PO SCH (21:12)
[2016-08-31] MEDS: ENOXAPARIN 40 MG/0.4 ML SYR SQ SCH (21:12)
[2016-08-31] MEDS ORDERED: FEXO1TAB49 PO (22:10)
[2016-08-31 22:57] VITALS: BP 136/89; PULSE 76; TEMP 37.2; O2SAT 95
[2016-09-01] MEDS: VANCOMYCIN INJ 1,200 MG in SODIUM CHLORIDE 0.9% 250ML 250 ML IV SCH (00:13)
[2016-09-01] MEDS: TRAMADOL HCL 50 MG TAB PO PRN (00:40)
[2016-09-01] MEDS: AMPICILLIN/SULBACTAM SOD INJ 3,000 MG in SODIUM CHLORIDE 0.9% 100ML 100 ML IV SCH ×2 (02:29→08:12)
[2016-09-01 06:26] LABS: BUN/CREATININE RATIO 17.2 (10-20); CREATININE 0.72 mg/dl (0.60-1.20); POTASSIUM 3.6 mmol/L (3.5-5.1)
[2016-09-01 07:08] VITALS: BP 134/81; PULSE 88; TEMP 37.3; O2SAT 95
[2016-09-01] MEDS ORDERED: VANCOMYCIN TROUGH SCH ×2 (07:30→11:30)
[2016-09-01] MEDS ORDERED: DXY100 PO (07:48)
--- NOTE | 2016-09-01 07:59 | Discharge Instructions ---
Discharge Instructions Admission Reason for Admission: Dog bite cellulitis of the hand,sepsis Discharge Discharge Diagnosis / Problem: Dog bite cellulitis hand,sepsis Discharge Goals Goal(s): Improve disease control, Therapeutic intervention Activity Recommendations Activity Limitations: as noted below Lifting Limitations: none Exercise/Sports Limitations: none Keep right hand elevated above the heart as much as possible over the next week. . Instructions / Follow-Up Instructions / Follow-Up You were admitted with a dog bite cellulitis of the right hand and arm. You were treated with IV Unasyn and Vancomycin. Your wound culture was growing out gram negative rods when you were discharged. Your nasal MRSA swab of the nose was also positive. You will be discharged to home with two antibiotics to cover for a broad range of bacteria. These are Augmentin and Doxycycline. Please complete another 7 days of antibiotics. Your PCP Dr. Rose can follow up on the final wound culture result in 1-2 days; you should follow up with him in 1-2 days. If your hand or arm start to turn red again, get more swollen, or if you have a fever or feel worse, please return to the ER. 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 Who to Call and When: Medical Emergencies: If at any time you feel your situation is an emergency, please call 911 immediately. . Non-Emergent Contact Non-Emergency issues call your: Primary Care Provider Call Non-Emergent contact if: you have a fever, your pain is worsening, your pain is unusual for you, your pain is concerning you, wound has increased drainage, wound has increased redness, wound has increased pain, you have any medication questions . . "Provider Documentation" section prepared by Roxana Bull. VTE Core Measure Inpt VTE Proph given/why not?: Enoxaparin (Lovenox)FLOR, T.EMele Alexander
[2016-09-01] MEDS: ZAFIRLUKAST TAB 20 MG TAB PO SCH (08:14)
[2016-09-01] MEDS: PANTOprazole SOD 40 MG TAB PO SCH (08:15)
[2016-09-01] MEDS: IBUPROFEN 800 MG TAB PO SCH (08:16)
[2016-09-01] MEDS: MULTIVITAMIN TAB PO SCH (08:16)
[2016-09-01] MEDS: ACETAMINOPHEN 500 MG TAB PO SCH (08:16)
[2016-09-01] MEDS ORDERED: ALLEGRA D PO SCH (09:00)
[2016-09-01] MEDS ORDERED: FEXOFENADINE HCL 180 MG TAB PO SCH (09:00)
[2016-09-01 09:31] VITALS: BP 134/81; PULSE 88; TEMP 37.3; O2SAT 95
--- NOTE | 2016-09-01 18:58 | Discharge Summary ---
Discharge Summary Admission Date: Aug 30, 2016 at 10:15 Discharge Date: Sep 01, 2016 Discharge Disposition: Home Principal Diagnosis: Dog bite cellulitis,sepsis Problems/Secondary Diagnoses: Extrinsic asthma Metabolic syndrome Pernicious anemia Migraines S/p R rotator cuff tear and repair GERD Osteoarthritis Insomnia MRSA carrier Allergic Rhinitis Osteopenia (seen on hand xray) Immunizations: Have You Had Influenza Vaccine: N/A History of Tetanus Vaccine?: Yes History of Pneumococcal: Yes History of Hepatitis B Vaccine: Yes Procedures: CT right hand and wrist UPPER EXTREMITY WITH CLINICAL HISTORY: R hand/wrist for abscess infection TECHNIQUE: Transaxial acquisition with multi axial reformatted images COMPARISON STUDY: Routine series dated 08/30/2016 FINDINGS: Mild generalized subcutaneous edematous change primarily about the distal aspect of the ulna and within the soft tissues dorsal to the metacarpals and medial to the breast. No evidence for drainable abscess or collection. Small punctate air pocket distal dorsal to the distal aspect fifth metacarpal. No evidence for drainable abscess or collection. IMPRESSION: 1. Moderate generalized cellulitis adjacent to the distal ulna as well as the lateral aspect of the osseous structures of the hand and wrist. 2. 1 and possibly 2 very small air pockets immediately dorsal to the distal fifth metacarpal. 3. No evidence for drainable abscess or collection. 4. No evidence for acute bony involvement RIGHT HAND 3 VIEWS CLINICAL HISTORY: Dog bite injury. Infection. FINDINGS: 3 views of the right hand are obtained. No prior studies are available for comparison at the time of dictation. The skeletal structures are osteopenic. No fracture is seen. There is negative ulnar variance. Mild osteoarthritic change is present involving the interphalangeal joints, the first metacarpophalangeal joint, and the first carpometacarpal joint. No erosive change is identified. There is soft tissue edema overlying the dorsal aspect of the hand. No subcutaneous gas is seen. No radiodense foreign body is identified. IMPRESSION: 1. Soft tissue edema with no acute bony abnormality seen in the right hand. 2. Osteopenia and arthritic change as above. Consultations: None Medication Reconciliation New Medications: Doxycycline Hyclate (Doxycycline Hyclate) 100 Mg Cap 100 MG PO BID for 7 Days, #14 CAP Continued Medications: Acetaminophen (Tylenol) 500 Mg Tab 2 TAB PO TID, TAB Amoxicillin & Pot Clavulanate (Augmentin 875-125 mg) 1 Tab Tab 1 TAB PO BID, #14 TAB Calcium Carbonate-Cholecalcife (Caltrate 600+D) 1 Tab Tab 1 TAB PO DAILY Ferrous Sulfate (Iron) 45 Mg Tab Unknown Dose PO DAILY Fexofenadine Hcl (Cristiana Allergy) 180 Mg Tab 1 TAB PO DAILY for 30 Days, #30 TAB 2 Refills Ibuprofen Tab (Motrin) 800 Mg Tab 1 TAB PO TID for 30 Days, #90 TAB 1 Refill Levalbuterol Hcl (Levalbuterol Hcl) 1.25 Mg/3 Ml Neb 3 ML INH QID PRN for Shortness of Breath Levalbuterol Tartrate (Levalbuterol Tartrate Hfa) 45 Mcg/Act Aer 2 PUFFS INH Q4 PRN for Shortness of Breath Lorazepam (Ativan) 0.5 Mg Tab 0.5 MG PO HS PRN for Sleep, TAB Metformin Hcl (Fortamet) 1,000 Mg Tab 1000 MG PO BID Mometasone Furoate-Formoterol (Dulera 200/5 Mcg) 1 Aer Aer 1 AER INH BID, INHALER Multivitamin (Multivitamin) Tab 1 TAB PO QAM Omalizumab (Xolair) 150 Mg Dana 1 DOSE SC MONTHLY Pantoprazole (Protonix) 40 Mg Tab 40 MG PO QAM, #30 Sumatriptan Succinate (Imitrex) 50 Mg Tab 50 MG PO DAILY PRN for Headache, TAB Tramadol (Ultram) 50 Mg Tab 50 MG PO Q8H PRN for Pain, TAB Zafirlukast (Zafirlukast) 20 Mg Tab 20 MG PO BID Zolpidem Tartrate (Zolpidem Tartrate) 10 Mg Tab 1 TAB PO HS for 30 Days, #30 TAB Referrals At Discharge Follow up Referrals: Physician Referral - Within 1 Week with Manuel Rose D.O.Int.Med. Discharge Exam Doing well on day of discharge. Afebrile, hand swelling and pain much improved. Migraine improved Review of Systems: Constitutional: No fever Eyes: No problem reported ENT: No problem reported Respiratory: No shortness of breath Cardiovascular: No chest pain Abdomen: No nausea, No pain, No vomiting Musculoskeletal: + joint pain, + swelling Genitourinary - Female: No problem reported Neurologic: No problem reported Psychiatric: No problem reported Endocrine: No problem reported Hematologic / Lymphatic: No problem reported Integumentary: No rash Physical Exam: General Appearance: WD/WN, no apparent distress Eyes: normal inspection, sclerae normal ENT: hearing grossly normal Neck: trachea midline Respiratory/Chest: lungs clear, normal breath sounds, no respiratory distress, no accessory muscle use Cardiovascular: regular rate, rhythm, no edema, no gallop, no JVD, no murmur , normal peripheral pulses Abdomen / GI: normal bowel sounds, non tender, soft, no organomegaly, no pulsatile mass Extremities: + pertinent finding (right hand with mild edema of dorsum of hand, very minimal residual erythema dorsum of hand and distal forearm, fingers no longer with edema or erythema) Neurologic/Psychiatric: alert, normal mood/affect, oriented x 3 Skin: warm/dry Hospital Course This is a 61 yo F with PMHx of allergic asthma, metabolic syndrome, pernicious anemia, migraines, s/p R rotator cuff tear and repair, GERD, osteoarthritis of multiple sites and insomnia who presents with dog bite cellulitis of the right hand, sepsis. Dog bite cellulitis of the hand and forearm, failed outpatient Augmentin x 36 hours. Xray of the hand without bony abnormality (except osteopenia), and CT hand and arm without abscess. Meets sepsis criteria with elevated WBC count, tachycardia, lactate elevated at 2.2. Lactate improved to 1.0, WBC count down to 8.8 after IVFs and antibiotics. Clinically much improved on exam as well. MRSA swab nose positive, now growing GNRs on Wound cx. Could be Pasturella. Wound culture was still pending at time of discharge but Microbiology reports it's most likely Pasturella and no sensitivities would follow if it was. This will need to be followed up on after discharge by PCP. 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 -elevate limb -ok to return to work if can elevate limb in 2 more days Metabolic Syndrome - restart metformin 1000mg BID on discharge Allergic Rhinitis, Extrinsic asthma - will continue all home meds and inhalers: xopenex inh and accolate tabs daily. Migraine headache- Improved with Imitrex -avoid triggers -continue motrin, tylenol prn GERD - Cont protonix 40 mg daily Insomnia - Cont ativan 0.5 mg QHS. DVT ppx: Lovenox Dispostion: to home Total Time Spent: Greater than 30 minutes This includes examination of the patient, discharge planning, medication reconciliation, and communication with other providers. Discharge Instructions Please refer to the electronic Patient Visit Report (Discharge Instructions) for additional information. Follow-Up With PCP in 2 days Additional Copies To Manuel Rose D.O.Int.Med.
== END 2016-09-01 09:54 | disposition home or self-care (01) | DRG 872 ==
LOC: ENRESERVDT → ENRESERVTM → C.EDB 07:21 → C.MSN 10:15 → EDBEDREQ 10:21
PROVIDERS: ADMIT Family Medicine; ATTEND Family Medicine
DX: A41.9 Sepsis, unspecified organism (principal); L03.113 Cellulitis of right upper limb; S61.451A Open bite of right hand, initial encounter; B96.89 Other specified bacterial agents as the cause of diseases classified elsewhere; J45.909 Unspecified asthma, uncomplicated; E88.81 Metabolic syndrome and other insulin resistance; D51.0 Vitamin B12 deficiency anemia due to intrinsic factor deficiency; G43.909 Migraine, unspecified, not intractable, without status migrainosus; K21.9 Gastro-esophageal reflux disease without esophagitis; M19.90 Unspecified osteoarthritis, unspecified site; M85.841 Other specified disorders of bone density and structure, right hand; G89.29 Other chronic pain; M54.5 Low back pain; G47.00 Insomnia, unspecified; Z22.322 Carrier or suspected carrier of Methicillin resistant Staphylococcus aureus; Z79.1 Long term (current) use of non-steroidal anti-inflammatories (NSAID); Z79.51 Long term (current) use of inhaled steroids; Z79.84 Long term (current) use of oral hypoglycemic drugs; Z79.891 Long term (current) use of opiate analgesic; Z79.899 Other long term (current) drug therapy; W54.0XXA Bitten by dog, initial encounter

== ENCOUNTER → 2016-09-27 | Outpatient (CLI) | payer BC ==
[~2016-09-27] MED LIST changes: -ALLDSR/24 PO; +AMOX875T PO; +CALC-354 PO; -CALCTAB5 PO; +DXY100 PO; +FERR1TAB61 PO; +FEXO1TAB49 PO; -GLC500 PO; -LEVA1.25 INH; +LEVA1.258 INH; +LEVA45AE INH; -LEVAAER2 INH; -PRED10TA PO; +SUMA50TA15 PO; +ZOLP10TA6 PO; +[UNRECOGNIZED DRUG - CODE] PO
[2016-09-27 14:50] LABS: BASO % 0.2 %; BASO ABS # 0.02 K/uL (0-0.2); COMPLETE YES; EOS % 1.9 %; HEMATOCRIT 39.4 % (37-47); IG% 0.4 %; LYMPH % 22.6 %; LYMPH ABS # 2.01 K/uL (1.2-3.4); MEAN CELL VOLUME 88.7 fL (80-100); MEAN CORPUSCULAR HEMOGLOBIN 29.5 pg (25-34); MEAN CORPUSCULAR HGB CONC 33.2 g/dl (32-36); MEAN PLATELET VOLUME 9.1 fL (7.4-10.4); MONO % 7.6 %; NEUT % 67.3 %; PLATELET COUNT 369 K/uL (130-400); RED BLOOD COUNT 4.44 M/uL (4.2-5.4); WHITE BLOOD COUNT 8.89 K/uL (4.8-10.8)
[2016-09-27 15:23] LABS: CHOLESTEROL/HDL RATIO 3.1; FERRITIN 21.2 ng/ml (8.0-388.0)
== END | disposition home or self-care (01) ==
LOC: C.LABBC 09:49
PROVIDERS: ATTEND Family Medicine
DX: Z13.220 Encounter for screening for lipoid disorders (principal); D50.9 Iron deficiency anemia, unspecified; D51.0 Vitamin B12 deficiency anemia due to intrinsic factor deficiency; M85.80 Other specified disorders of bone density and structure, unspecified site

== ENCOUNTER → 2016-10-14 | Outpatient (CLI) | payer BC | END | disposition home or self-care (01) | LOC: C.MAMM 08:37 | PROVIDERS: ATTEND Family Medicine | DX: M85.80 Other specified disorders of bone density and structure, unspecified site (principal) ==

== ENCOUNTER → 2016-10-29 | Outpatient (CLI) | payer BC ==
--- NOTE | 2016-10-29 16:38 | MAMMOGRAPHY REPORT ---
BILATERAL DIGITAL SCREENING MAMMOGRAM WITH CAD: 10/29/2016 CLINICAL HISTORY: Routine screening. Patient has no complaints. TECHNIQUE: Current study was also evaluated with a Computer Aided Detection (CAD) system. Bilatera l CC and MLO views and a left X CCL view were obtained. COMPARISON: Comparison is made to exams dated: 11/29/2008 and 06/16/2007. BREAST COMPOSITION: The tissue of both breasts is almost entirely fatty. FINDINGS: No suspicious masses, calcifications, or areas of architectural distortion are noted in e ither breast. There has been no significant interval change compared to prior exams. IMPRESSION: ACR BI-RADS CATEGORY 1: NEGATIVE There is no mammographic evidence of malignancy. A 1 year screening mammogram is recommended. The p atient will receive written notification of the results. Approximately 10% of breast cancers are not detected with mammography. A negative mammographic repor t should not delay biopsy if a clinically suggestive mass is present. Nereida Leavitt M.D. ah/:10/29/2016 16:02:53 Carpenter: Andra FISH(Omero)(M), [facility] letter sent: Normal 1/2 BI-RADS Code: ACR BI-RADS Category 1: Negative
== END | disposition home or self-care (01) ==
LOC: C.MAMM 15:34
PROVIDERS: ATTEND Obstetrics & Gynecology
DX: Z12.31 Encounter for screening mammogram for malignant neoplasm of breast (principal)

== ENCOUNTER → 2016-11-24 | Outpatient (CLI) | payer BC ==
[2016-11-24 15:32] LABS: CALCIUM 9.3 mg/dl (8.5-10.1)
[2016-11-24 15:54] LABS: ALT/SGPT 29 U/L (12-78); BLOOD UREA NITROGEN 12 mg/dl (7-18); BUN/CREATININE RATIO 16.6 (10-20); CARBON DIOXIDE 26 mmol/L (21-32); CHLORIDE 102 mmol/L (98-107); CREATININE 0.74 mg/dl (0.60-1.20); GLUCOSE 78 mg/dl (70-99); POTASSIUM 4.4 mmol/L (3.5-5.1); SODIUM 138 mmol/L (136-145)
[2016-11-24 16:00] LABS: ALKALINE PHOSPHATASE 76 U/L (45-117); AST/SGOT 45 U/L (15-37)
== END | disposition home or self-care (01) ==
LOC: C.LAB1850 13:45
PROVIDERS: ATTEND Family Medicine
DX: Z01.419 Encounter for gynecological examination (general) (routine) without abnormal findings (principal); E34.9 Endocrine disorder, unspecified; M85.80 Other specified disorders of bone density and structure, unspecified site; Z87.42 Personal history of other diseases of the female genital tract

== ENCOUNTER → 2016-11-24 | Outpatient (CLI) | payer BC | END | disposition home or self-care (01) | LOC: C.PAPS 09:41 | PROVIDERS: ATTEND Obstetrics & Gynecology | DX: Z01.419 Encounter for gynecological examination (general) (routine) without abnormal findings (principal); Z87.42 Personal history of other diseases of the female genital tract ==

== ENCOUNTER → 2016-11-29 | Outpatient (CLI) | payer BC | END | disposition home or self-care (01) | LOC: C.LABSPEC 10:07 | PROVIDERS: ATTEND Family Medicine | DX: E34.9 Endocrine disorder, unspecified (principal) ==

== ENCOUNTER → 2016-12-29 | Outpatient (CLI) | payer BC ==
[2016-12-29 18:32] LABS: LYME DISEASE AB IGM NEG (NEG)
[2016-12-29 18:35] LABS: LYME DISEASE AB IGG NEG (NEG)
== END | disposition home or self-care (01) ==
LOC: C.LAB1850 14:58
PROVIDERS: ATTEND Family Medicine
DX: T14.8 Other injury of unspecified body region (principal); W57.XXXA Bitten or stung by nonvenomous insect and other nonvenomous arthropods, initial encounter

== ENCOUNTER → 2017-01-19 | Outpatient (CLI) | payer BC ==
[2017-01-19 15:04] LABS: BLOOD UREA NITROGEN 22 mg/dl (7-18); BUN/CREATININE RATIO 25.8 (10-20); CALCIUM 8.8 mg/dl (8.5-10.1); CARBON DIOXIDE 26 mmol/L (21-32); CHLORIDE 102 mmol/L (98-107); CREATININE 0.84 mg/dl (0.60-1.20); GLUCOSE 79 mg/dl (70-99); MAGNESIUM 2.2 mg/dl (1.8-2.4); PHOSPHORUS 3.6 mg/dl (2.5-4.9); POTASSIUM 3.8 mmol/L (3.5-5.1); SODIUM 138 mmol/L (136-145)
== END | disposition home or self-care (01) ==
LOC: C.LAB1850 13:22
PROVIDERS: ATTEND Internal Medicine Endocrinology, Diabetes & Metabolism
DX: E34.9 Endocrine disorder, unspecified (principal); D51.0 Vitamin B12 deficiency anemia due to intrinsic factor deficiency; M85.80 Other specified disorders of bone density and structure, unspecified site; D50.9 Iron deficiency anemia, unspecified

== ENCOUNTER → 2017-01-24 | Outpatient (CLI) | payer BC ==
[2017-01-24 12:47] LABS: CALCIUM URINE < 5.0 mg/dl
[2017-01-24 14:51] LABS: URINE COLLECTION TIME 24 HOURS; URINE SODIUM 24 HR 158 mmol/24 (40-220)
== END | disposition home or self-care (01) ==
LOC: C.LAB1850 09:22
PROVIDERS: ATTEND Internal Medicine Endocrinology, Diabetes & Metabolism
DX: E34.9 Endocrine disorder, unspecified (principal)

== ENCOUNTER → 2017-03-07 | Outpatient (CLI) | payer BC ==
--- NOTE | 2017-03-07 15:12 | DIAGNOSTIC IMAGING REPORT ---
RIGHT LOWER EXTREMITY VENOUS DOPPLER CLINICAL HISTORY: Contusion of right knee. COMPARISON STUDY: No previous studies for comparison. TECHNIQUE: Sonography of the deep venous system of the right lower extremity was performed. Compression and augmentation were evaluated. FINDINGS: The right common femoral, superficial femoral and popliteal veins were compressible. Augmentation was normal. Flow was shown within the deep calf vessels. IMPRESSION: No evidence of deep venous thrombus within the right lower extremity. Electronically signed by: Vincent Rosenberg M.D. 03/07/2017 3:11 PM Dictated Date/Time: 03/07/2017 3:09 PM
== END | disposition home or self-care (01) ==
LOC: C.ULTR 14:23
PROVIDERS: ATTEND Internal Medicine
DX: S80.01XA Contusion of right knee, initial encounter (principal); X58.XXXA Exposure to other specified factors, initial encounter

== ENCOUNTER → 2017-05-26 | Outpatient (CLI) | payer BC ==
[2017-05-26 12:30] LABS: ESTIMATED AVERAGE GLUCOSE 108 mg/dl; HA1C FLAG Normal (Normal)
[2017-05-26 12:57] LABS: ALT/SGPT 30 U/L (12-78); AST/SGOT 50 U/L (15-37); BLOOD UREA NITROGEN 17 mg/dl (7-18); BUN/CREATININE RATIO 22.1 (10-20); CALCIUM 9.1 mg/dl (8.5-10.1); CARBON DIOXIDE 29 mmol/L (21-32); CHLORIDE 102 mmol/L (98-107); CREATININE 0.77 mg/dl (0.60-1.20); GLUCOSE 63 mg/dl (70-99); POTASSIUM 3.8 mmol/L (3.5-5.1); SODIUM 137 mmol/L (136-145)
[2017-05-26 13:01] LABS: ALB/GLOB RATIO 0.8 (0.9-2); ALKALINE PHOSPHATASE 64 U/L (45-117)
== END | disposition home or self-care (01) ==
LOC: C.LAB1850 09:45
PROVIDERS: ATTEND Internal Medicine
DX: E88.81 Metabolic syndrome and other insulin resistance (principal); R74.0 Nonspecific elevation of levels of transaminase and lactic acid dehydrogenase [LDH]; S80.01XA Contusion of right knee, initial encounter; X58.XXXA Exposure to other specified factors, initial encounter

== ENCOUNTER → 2017-07-21 | Outpatient (CLI) | payer BC ==
[2017-07-21 11:24] LABS: ALT/SGPT 32 U/L (12-78); AST/SGOT 47 U/L (15-37); BLOOD UREA NITROGEN 17 mg/dl (7-18); CALCIUM 9.4 mg/dl (8.5-10.1); CARBON DIOXIDE 28 mmol/L (21-32); CHLORIDE 101 mmol/L (98-107); CREATININE 0.88 mg/dl (0.60-1.20); GLUCOSE 68 mg/dl (70-99); POTASSIUM 4.1 mmol/L (3.5-5.1); SODIUM 136 mmol/L (136-145)
[2017-07-21 11:27] LABS: ALB/GLOB RATIO 1.1 (0.9-2); ALKALINE PHOSPHATASE 56 U/L (45-117)
[2017-07-21 13:33] LABS: CREATININE, URINE 39.2 mg/dl
[2017-07-21 13:37] LABS: CALCIUM URINE < 5.0 mg/dl; URINE COLLECTION TIME 24 HOURS
== END | disposition home or self-care (01) ==
LOC: C.LAB1850 09:09
PROVIDERS: ATTEND Internal Medicine Endocrinology, Diabetes & Metabolism
DX: N25.81 Secondary hyperparathyroidism of renal origin (principal)

== ENCOUNTER → 2017-11-04 | Outpatient (CLI) | payer BC ==
[2017-11-04 13:05] LABS: INFLUENZA B ANTIGEN Neg for Influ B (NEG)
== END | disposition home or self-care (01) ==
LOC: C.LAB1850 11:25
PROVIDERS: ATTEND Nurse Practitioner
DX: R68.89 Other general symptoms and signs (principal)

== ENCOUNTER → 2017-12-12 | Outpatient (CLI) | payer BC ==
[~2017-12-12] MED LIST changes: -ACCL20 PO; +ZAFI1TAB11 PO
== END | disposition home or self-care (01) ==
LOC: C.LAB1850 09:43
PROVIDERS: ATTEND Internal Medicine Endocrinology, Diabetes & Metabolism
DX: N25.81 Secondary hyperparathyroidism of renal origin (principal)

== ENCOUNTER 2019-10-01 10:03 | Observation (INO) ==
--- NOTE | 2019-09-11 16:07 | PAT Medication Instructions ---
Medication Instructions Date of Service September 11, 2019 Home Medications Medication Instructions Recorded calcitriol 0.5 mcg capsule 0.5 mcg PO DAILY #90 cap 06/11/19 hydrocortisone 2.5 % topical cream 1 appln [place] DAILY PRN #28 gm 06/11/19 with perineal applicator ibuprofen 800 mg tablet 800 mg PO TID #270 tab 06/11/19 pseudoephedrine HCl 120 mg 120 mg PO Q12H #60 tab 06/11/19 tablet,extended release zafirlukast 20 mg tablet 20 mg PO BID #180 tab 06/11/19 syringe with needle, safety 3 mL #100 ea 06/13/19 25 gauge x 5/8" oxycodone-acetaminophen 5 mg-325 1 tab PO Q6H PRN #30 tab 07/09/19 mg tablet metformin 1,000 mg tablet 1,000 mg PO BID #180 tab 08/21/19 cholecalciferol (vitamin D3) 50 mcg (2,000 unit) capsule 2,000 units PO DAILY ferrous sulfate 325 mg (65 mg iron) tablet 325 mg PO DAILY fexofenadine 180 mg tablet 180 mg PO QAM fluticasone 250 mcg-salmeterol 50 mcg/dose blistr powdr for inhalation 1 puffs INH BID levalbuterol HCl 1.25 mg/3 mL solution for nebulization 1.25 mg INHALATION UD PRN levalbuterol tartrate 45 mcg/actuation aerosol inhaler 2 puffs INH Q4H PRN lisinopril 5 mg tablet 5 mg PO QAM gdcpsuchjcuv-nqoefpbd-noadjy 1 tab PO DAILY ondansetron HCl 4 mg tablet 4 mg PO Q6H PRN epinephrine 0.3 mg/0.3 mL injection, auto-injector 0.3 mg IM UD PRN calcitriol 0.5 mcg capsule 0.5 mcg PO DAILY hydrocortisone 2.5 % topical cream with perineal applicator 1 appln [place] DAILY PRN ibuprofen 800 mg tablet 800 mg PO TID pseudoephedrine HCl 120 mg tablet,extended release 120 mg PO Q12H zafirlukast 20 mg tablet 20 mg PO BID oxycodone-acetaminophen 5 mg-325 mg tablet 1 tab PO Q6H PRN vitamins A,C,E-mkvv-saibnh 14,320 unit-226 mg-200 unit capsule 1 cap PO BID metformin 1,000 mg tablet 1,000 mg PO BID cyanocobalamin (vitamin B-12) 100 mcg IM MONTHLY lorazepam 1 mg PO HS methocarbamol 750 mg PO BID PRN omalizumab 150 mg SUBCUT MONTHLY pantoprazole 20 mg PO QAM sumatriptan succinate 50 mg PO UD PRN tramadol 100 mg PO Q8H PRN zolpidem 10 mg PO HS Continue as directed epinephrine 0.3 mg/0.3 mL injection, auto-injector 0.3 mg IM UD PRN (if needed) omalizumab 150 mg SUBCUT MONTHLY ASK your surgeon for instructions ibuprofen 800 mg tablet 800 mg PO TID STOP taking 2 weeks before surgery (or as soon as possible if surgery is within 2 weeks) vitamins A,C,T-lozg-jabgcr 14,320 unit-226 mg-200 unit capsule 1 cap PO BID STOP taking 24 hours before surgery hydrocortisone 2.5 % topical cream with perineal applicator 1 appln FL DAILY PRN DO NOT take the morning of surgery cholecalciferol (vitamin D3) 50 mcg (2,000 unit) capsule 2,000 units PO DAILY ferrous sulfate 325 mg (65 mg iron) tablet 325 mg PO DAILY fexofenadine 180 mg tablet 180 mg PO QAM lisinopril 5 mg tablet 5 mg PO QAM multivitamin 1 tab PO DAILY calcitriol 0.5 mcg capsule 0.5 mcg PO DAILY pseudoephedrine HCl 120 mg tablet,extended release 120 mg PO Q12H zafirlukast 20 mg tablet 20 mg PO BID metformin 1,000 mg tablet 1,000 mg PO BID methocarbamol 750 mg PO BID PRN Take morning of surgery With a small sip of water, OTHERWISE NOTHING TO EAT OR DRINK AFTER MIDNIGHT: fluticasone 250 mcg-salmeterol 50 mcg/dose blistr powdr for inhalation 1 puffs INH BID levalbuterol HCl 1.25 mg/3 mL solution for nebulization 1.25 mg INHALATION UD PRN (if needed) levalbuterol tartrate 45 mcg/actuation aerosol inhaler 2 puffs INH Q4H PRN (if needed) ondansetron HCl 4 mg tablet 4 mg PO Q6H PRN (if needed) oxycodone-acetaminophen 5 mg-325 mg tablet 1 tab PO Q6H PRN (okay to take up to 4 hours prior to surgery if needed) pantoprazole 20 mg PO QAM sumatriptan succinate 50 mg PO UD PRN (if needed) tramadol 100 mg PO Q8H PRN (okay to take up to 4 hours prior to surgery if needed) Take evening before surgery fluticasone 250 mcg-salmeterol 50 mcg/dose blistr powdr for inhalation 1 puffs INH BID levalbuterol HCl 1.25 mg/3 mL solution for nebulization 1.25 mg INHALATION UD PRN (if needed) levalbuterol tartrate 45 mcg/actuation aerosol inhaler 2 puffs INH Q4H PRN (if needed) ondansetron HCl 4 mg tablet 4 mg PO Q6H PRN (if needed) hydrocortisone 2.5 % topical cream with perineal applicator 1 appln FL DAILY PRN (if needed) pseudoephedrine HCl 120 mg tablet,extended release 120 mg PO Q12H zafirlukast 20 mg tablet 20 mg PO BID oxycodone-acetaminophen 5 mg-325 mg tablet 1 tab PO Q6H PRN (if needed) metformin 1,000 mg tablet 1,000 mg PO BID lorazepam 1 mg PO HS methocarbamol 750 mg PO BID PRN (if needed) sumatriptan succinate 50 mg PO UD PRN (if needed) tramadol 100 mg PO Q8H PRN (if needed) zolpidem 10 mg PO HS Other Notes If you have any questions please call us at [phone] or [phone] or [phone] or [phone]
--- NOTE | 2019-09-12 11:59 | Anesthesiology Consultation ---
Date of Service September 12, 2019 Assessment & Plan (1) Encounter for pre-operative examination: Scoliosis: Patient anxious RE: SAB due to her hx of scoliosis. Per 12/2018 lumbar MRI, progressive multilevel spondylitic changes. There is multilevel foraminal narrowing. There is moderate spinal stenosis at the L3-4 level, and mild spinal stenosis the T12-L1, L2-L3, and L4-L5 levels. Discussed SAB vs. GA. Advised patient to discuss further with anesthesiologist MONSE ESPINOZA. Chart Review Chart Review: Patient seen in Pre Admission Testing Teaching & Discussion Pre-Anesthesia Teaching/Discussion Notes: Instructed NPO after midnight before surgery,except medications with 15 cc of water. Medication instructions provided according to the PAT guidelines. History Surgery Operation Date: 10/01/19 11:10 Proposed Procedures p Right Anterior Total Hip Arthroplasty - Sae Teran DO Height/Weight Height: 4 ft 11 in Weight: 71.1 kg Allergies Allergy/AdvReac Type Severity Reaction Status Date / Time cat dander Allergy Unknown triggers Verified 09/11/19 14:46 asthma cefazolin [From Ancef] Allergy Unknown Rash Verified 09/11/19 14:46 Cephalosporins Allergy Unknown Rash Verified 09/11/19 14:46 dog dander Allergy Unknown triggers Verified 09/12/19 12:19 asthma house dust Allergy Unknown triggers Verified 09/12/19 12:19 asthma mold Allergy Unknown triggers Verified 09/12/19 12:19 asthma naproxen Allergy Unknown Rash (see Verified 09/12/19 12:19 comments) neomycin Allergy Unknown Rash Verified 09/11/19 14:46 Sulfa (Sulfonamide Allergy Unknown Rash Verified 09/12/19 12:19 Antibiotics) Medications Home Medications Medication Instructions Recorded Confirmed Last Taken cholecalciferol (vitamin D3) 50 2,000 units PO DAILY #30 cap 01/22/19 09/11/19 06/26/19 mcg (2,000 unit) capsule ferrous sulfate 325 mg (65 mg 325 mg PO DAILY tab 01/22/19 09/11/19 06/26/19 iron) tablet fexofenadine 180 mg tablet 180 mg PO QAM 01/22/19 09/11/19 06/27/19 05:00 fluticasone 250 mcg-salmeterol 50 1 puffs INH BID 01/22/19 09/11/19 06/26/19 mcg/dose blistr powdr for inhalation levalbuterol HCl 1.25 mg/3 mL 1.25 mg INHALATION UD PRN ml 01/22/19 09/11/19 06/26/19 solution for nebulization levalbuterol tartrate 45 2 puffs INH Q4H PRN gm 01/22/19 09/11/19 Unknown mcg/actuation aerosol inhaler lisinopril 5 mg tablet 5 mg PO QAM 01/22/19 09/11/19 06/27/19 05:00 ycoryudusvgu-yqhsextg-edvyqe 1 tab PO DAILY 01/22/19 09/11/19 06/26/19 ondansetron HCl 4 mg tablet 4 mg PO Q6H PRN #15 tab 01/22/19 09/11/19 Unknown epinephrine 0.3 mg/0.3 mL 0.3 mg IM UD PRN ea 06/08/19 09/11/19 Unknown injection, auto-injector calcitriol 0.5 mcg capsule 0.5 mcg PO DAILY #90 cap 06/11/19 09/11/19 06/27/19 05:00 hydrocortisone 2.5 % topical cream 1 appln [place] DAILY PRN #28 gm 06/11/19 09/11/19 Unknown with perineal applicator ibuprofen 800 mg tablet 800 mg PO TID #270 tab 06/11/19 09/11/19 06/26/19 pseudoephedrine HCl 120 mg 120 mg PO Q12H #60 tab 06/11/19 09/11/19 06/27/19 05:00 tablet,extended release zafirlukast 20 mg tablet 20 mg PO BID #180 tab 06/11/19 09/11/19 06/26/19 syringe with needle, safety 3 mL #100 ea 06/13/19 09/04/19 Unknown 25 gauge x 5/8" oxycodone-acetaminophen 5 mg-325 1 tab PO Q6H PRN #30 tab 07/09/19 09/11/19 Unknown mg tablet vitamins A,C,E-jaqq-khhqve 14,320 1 cap PO BID 07/23/19 09/11/19 Unknown unit-226 mg-200 unit capsule metformin 1,000 mg tablet 1,000 mg PO BID #180 tab 08/21/19 09/11/19 Unknown cyanocobalamin (vitamin B-12) 100 mcg IM MONTHLY 09/11/19 09/11/19 Unknown lorazepam 1 mg PO HS 09/11/19 09/11/19 Unknown methocarbamol 750 mg PO BID PRN 09/11/19 09/11/19 Unknown omalizumab 150 mg SUBCUT MONTHLY 09/11/19 09/11/19 Unknown pantoprazole 20 mg PO QAM 09/11/19 09/11/19 Unknown sumatriptan succinate 50 mg PO UD PRN 09/11/19 09/11/19 Unknown tramadol 100 mg PO Q8H PRN 09/11/19 09/11/19 Unknown zolpidem 10 mg PO HS 09/11/19 09/11/19 Unknown Past Medical History Medical History (Updated 09/12/19 @ 14:27 by Ana Luisa Ackerman) Anemia hx iron deficiency/pernicious anemia Avascular necrosis of bone of right hip Extrinsic asthma stable Gastroesophageal reflux disease occasional Generalized osteoarthritis of multiple sites Insomnia Irritable bowel syndrome Macular degeneration Obesity Osteopenia Scoliosis lumbar Exercise / Class Metabolic Activity III < 4 Walking/Shop/Light housework Past Family History Family History Father Esophageal cancer Mother Rheumatic fever Stroke Sister Diabetes Brother Prostate cancer Atrial fibrillation Other No family history of adverse response to anesthesia Past Surgical History Surgical History History of colonoscopy History of esophagogastroduodenoscopy (EGD) History of oral surgery dental implant History of repair of left rotator cuff Left shoulder arthroscopy: 06/27/19: LMA#4 + PNB at [facility] [place] History of wisdom tooth extraction S/P bunionectomy HX OF Left foot S/P tonsillectomy HX OF S/P ventral herniorrhaphy HX OF Status post lumbar laminectomy HX OF Status post lumbar laminectomy 1979 L5-S1. HX OF Status post lumbar fusion 1987-L5 S1 Status post lymph node biopsy Left axillary lymph node resection Status post rotator cuff repair right shoulder laparoscopic rotator cuff repair (2015) Past Anesthesia History No Family Hx of Anesthesia Complications and Other Patient denies any issues with previous surgeries/anesthesia. Per post-op anesthesia progress note after left shoulder arthroscopy 06/27/19 at [facility] [place]: "Patient arrived in PACU c/o left chest pain. The pain was localized at the level of her armpit and it began at the anterior axillary line and spread to the midclavicular line. She rated the pain at a 6 and stated that it was worse with inspiration. Pain was also worse when I palpated over the region in question. The patient was mildly tachycardic and hypertensive. She was oxygenating well on an oxymask and not tachypneic or diaphoretic. Stat EKG was obtained and showed NSR without evidence of ischemia or arrhythmia. She was given a dose of esmolol with a resulting decrease in her heart rate, but without any change in h er pain level. The patient was given multiple doses of fentanyl with mild improvement. Of note, the patient does not have any significant cardiac history and had an echo a few weeks ago that was normal. Her block was functioning well, but this pain is consistent with an area that is not covered by an interscalene nerve block and that can cause pain after this surgical procedure. Despite this, due to the patient's age and only a mild improvement after fentanyl, I discussed the possibility of transferring the patient over to the [facility] to rule out cardiac causes with her and her . The patient refused this option, stating that the pain was definitely improved. She was given additional doses of fentanyl with a resulting pain score of 2. She was transferred to stage 2 where she remained hemodynamically stable and was able to wean off oxygen. At the time of discharge, the chest pain had full resolved and she had pain in her axilla only. She was counseled to report to the ED for return of chest pain, SOB, diaphoresis, presyncope, syncope, palpitations, or any other concerning symptoms." *Patient subsequently evaluated at [facility] 09/12/19 and she has not had any recurrence of previous chest pain complaints and no cardiopulmonary complaints in general.* History of PONV History of PONV (+ nausea) and Hx of Motion Sickness Social History Smoking Status: Never smoker Do You Dip or Chew Tobacco: No Hx Alcohol Use: Yes alcohol intake frequency: holidays/special occasions only Hx Substance Use: No substance use type: prescription drug Review of Systems Patient denies chest pain, shortness of breath, cough, wheezing, palpitations. Physical Exam Vital Signs VITALS BP 117/79 P 97 TEMP 97.9 SP02 100%RA RESP 18 PHYSICAL Full neck and c-spine range of motion. Full TMJ range of motion. TMD 4 finger breaths Mallampati Score 1 Dentition: missing molars, several crowns + implant (patient unsure location) Lungs: clear throughout to auscultation Cardiac: regular rate and rhythm, no murmurs noted Spine: normal Carotid arteries: negative bruit Extremities: no edema Testing Laboratory Results 09/12/19 12:11 09/12/19 12:11 PT 10.3 Seconds (9.0-12.0) 09/12/19 12:11 INR 1.0 (0.9-1.1) 09/12/19 12:11 APTT 25.2 Seconds (21.0-31.0) 09/12/19 12:11 Hemoglobin A1c 5.4 % (4.5-5.6) 09/12/19 12:11 *Chronic hx of mild platelet elevated* Electrocardiogram Date: 06/27/19 Findings: + NSR @ (94) Chest X-Ray Date: 09/12/19 Echocardiogram Date: 06/18/19 LVEF 60-65%. No RWMA. Mild cLVH. Borderline dilated ascending aorta 3.8cm. Mild AI. Other Testing Lumbar spine MRI: 01/23/19: Progressive multilevel spondylitic changes. There is multilevel foraminal narrowing. There is moderate spinal stenosis at the L3-4 level, and mild spinal stenosis the T12-L1, L2-L3, and L4-L5 levels.
--- NOTE | 2019-09-12 12:48 | XRay Report ---
TWO VIEW CHEST CLINICAL HISTORY: Preoperative examination. FINDINGS: PA and lateral chest radiographs are compared to study dated 02/19/2016. The cardiomediastin al silhouette is unremarkable. The lungs and pleural spaces are clear. There is no pneumothorax. The skeletal structures are osteopenic. The bony thorax appears intact. Degenerative change and scoliosi s are noted in the thoracic spine. IMPRESSION: No active disease in the chest. ACT 112: Negative or not required by law. Electronically signed by: Jonathan Juarez M.D. 09/12/2019 12:47 PM
[2019-09-12 13:55] LABS: Basophils # (auto) 0.01 K/uL (0-0.2); Basophils % (auto) 0.1 %; Eosinophils # (auto) 0.03 K/uL (0-0.5); Eosinophils % (auto) 0.4 %; Hematocrit (blood only) 39.2 % (37-47); Immature Granulocytes # (auto) 0.04 K/uL (0.00-0.02); Immature Granulocytes % (auto) 0.5 %; Lymphocytes # (auto) 1.77 K/uL (1.2-3.4); Lymphocytes % (auto) 21.1 %; Mean Corpuscular Hemoglobin 29.5 pg (25-34); Mean Corpuscular Hgb Conc 33.2 g/dL (32-36); Mean Corpuscular Volume 89.1 fL (80-100); Mean Platelet Volume 8.6 fL (7.4-10.4); Monocytes # (auto) 0.68 K/uL (0.11-0.59); Monocytes % (auto) 8.1 %; Neutrophils # (auto) 5.87 K/uL (1.4-6.5); Neutrophils % (auto) 69.8 %; Platelet Count 486 K/uL (130-400); RDW Coefficient of Variation 12.4 % (11.5-14.5); RDW Standard Deviation 40.1 fL (36.4-46.3)
[2019-09-12 14:05] LABS: Partial Thromboplastin Ratio 0.9; Partial Thromboplastin Time 25.2 Seconds (21.0-31.0); Prothrombin Time 10.3 Seconds (9.0-12.0)
[2019-09-12 14:10] LABS: BUN Creatinine Ratio 26.8 (10-20); Calcium 10.2 mg/dl (8.5-10.1); Creatinine Clr Calc Pharmacy 62.5 ml/min; Est GFR (African American) 93.1; Est GFR (Non-African American) 80.3; Potassium 4.4 mmol/L (3.5-5.1)
[2019-09-12 14:17] LABS: Estimated Average Glucose 108 mg/dl; Hemoglobin A1C 5.4 % (4.5-5.6)
--- NOTE | 2019-09-27 09:14 | History & Physical Report ---
Date of Service September 27, 2019 Assessment & Plan (1) Avascular necrosis of bone of right hip: We will proceed with a right anterior total hip arthroplasty. Postoperatively she will be placed on aspirin for DVT prophylaxis and kept overnight in the hospital for postoperative medical management. She plans to use energy physical therapy upon discharge. Present on Admission?: Yes History of Present Illness Chief Complaint: Avascular necrosis of the right hip Primary Care Provider: Avery Tamayo MD Nadine is a pleasant 64-year-old female who is 4 months status post left rotator cuff repair. Unfortunately she has been dealing with a severe increase of right hip pain. She does have a history of long-term steroid use secondary to lung issues. Her right hip has gotten much worse over the past month or so. She is having trouble standing and walking. X-rays and clinical examination are diagnostic for advanced avascular necrosis of the right hip. After failing conservative treatment, she has elected to proceed with a right total hip arthroplasty. Allergies Allergy/AdvReac Type Severity Reaction Status Date / Time cat dander Allergy Unknown triggers Verified 09/11/19 14:46 asthma cefazolin [From Ancef] Allergy Unknown Rash Verified 09/11/19 14:46 Cephalosporins Allergy Unknown Rash Verified 09/11/19 14:46 dog dander Allergy Unknown triggers Verified 09/12/19 12:19 asthma house dust Allergy Unknown triggers Verified 09/12/19 12:19 asthma mold Allergy Unknown triggers Verified 09/12/19 12:19 asthma naproxen Allergy Unknown Rash (see Verified 09/12/19 12:19 comments) neomycin Allergy Unknown Rash Verified 09/11/19 14:46 Sulfa (Sulfonamide Allergy Unknown Rash Verified 09/12/19 12:19 Antibiotics) Home Medications Home Medications Medication Instructions Recorded Confirmed Type cholecalciferol (vitamin D3) 50 2,000 units PO DAILY #30 cap 01/22/19 09/11/19 History mcg (2,000 unit) capsule ferrous sulfate 325 mg (65 mg 325 mg PO DAILY tab 01/22/19 09/11/19 History iron) tablet fexofenadine 180 mg tablet 180 mg PO QAM 01/22/19 09/11/19 History fluticasone 250 mcg-salmeterol 50 1 puffs INH BID 01/22/19 09/11/19 History mcg/dose blistr powdr for inhalation levalbuterol HCl 1.25 mg/3 mL 1.25 mg INHALATION UD PRN ml 01/22/19 09/11/19 History solution for nebulization levalbuterol tartrate 45 2 puffs INH Q4H PRN gm 01/22/19 09/11/19 History mcg/actuation aerosol inhaler lisinopril 5 mg tablet 5 mg PO QAM 01/22/19 09/11/19 History igooppcpfxpn-wodtsyow-yytytr 1 tab PO DAILY 01/22/19 09/11/19 History ondansetron HCl 4 mg tablet 4 mg PO Q6H PRN #15 tab 01/22/19 09/11/19 History epinephrine 0.3 mg/0.3 mL 0.3 mg IM UD PRN ea 06/08/19 09/11/19 History injection, auto-injector calcitriol 0.5 mcg capsule 0.5 mcg PO DAILY #90 cap 06/11/19 09/11/19 Rx hydrocortisone 2.5 % topical cream 1 appln [place] DAILY PRN #28 gm 06/11/19 09/11/19 Rx with perineal applicator ibuprofen 800 mg tablet 800 mg PO TID #270 tab 06/11/19 09/11/19 Rx pseudoephedrine HCl 120 mg 120 mg PO Q12H #60 tab 06/11/19 09/11/19 Rx tablet,extended release zafirlukast 20 mg tablet 20 mg PO BID #180 tab 06/11/19 09/11/19 Rx syringe with needle, safety 3 mL #100 ea 06/13/19 09/04/19 Rx 25 gauge x 5/8" oxycodone-acetaminophen 5 mg-325 1 tab PO Q6H PRN #30 tab 07/09/19 09/11/19 Rx mg tablet vitamins A,C,Z-maiy-zishle 14,320 1 cap PO BID 07/23/19 09/11/19 History unit-226 mg-200 unit capsule metformin 1,000 mg tablet 1,000 mg PO BID #180 tab 08/21/19 09/11/19 Rx cyanocobalamin (vitamin B-12) 100 mcg IM MONTHLY 09/11/19 09/11/19 History methocarbamol 750 mg PO BID PRN 09/11/19 09/11/19 History omalizumab 150 mg SUBCUT MONTHLY 09/11/19 09/11/19 History pantoprazole 20 mg PO QAM 09/11/19 09/11/19 History sumatriptan succinate 50 mg PO UD PRN 09/11/19 09/11/19 History tramadol 100 mg PO Q8H PRN 09/11/19 09/11/19 History tramadol 50 mg tablet 50 mg PO Q6H PRN #30 tab 09/12/19 Rx lorazepam 1 mg tablet 1 mg PO HS #30 tab 09/14/19 Rx zolpidem 10 mg tablet 10 mg PO HS #30 tab 09/14/19 Rx oxycodone-acetaminophen 5 mg-325 1 tab PO Q6H PRN #20 tab 09/26/19 Rx mg tablet Past Med/Surg History Medical History Anemia hx iron deficiency/pernicious anemia Avascular necrosis of bone of right hip Extrinsic asthma stable Gastroesophageal reflux disease occasional Generalized osteoarthritis of multiple sites Insomnia Irritable bowel syndrome Macular degeneration Obesity Osteopenia Scoliosis lumbar Surgical History History of colonoscopy History of esophagogastroduodenoscopy (EGD) History of oral surgery dental implant History of repair of left rotator cuff Left shoulder arthroscopy: 06/27/19: LMA#4 + [place] [facility] [place] History of wisdom tooth extraction S/P bunionectomy HX OF Left foot S/P tonsillectomy HX OF S/P ventral herniorrhaphy HX OF Status post lumbar laminectomy HX OF Status post lumbar laminectomy 1980 L5-S1. HX OF Status post lumbar fusion 1988-L5 S1 Status post lymph node biopsy Left axillary lymph node resection Status post rotator cuff repair right shoulder laparoscopic rotator cuff repair (2016) Family History Father Esophageal cancer Mother Rheumatic fever Stroke Sister Diabetes Brother Prostate cancer Atrial fibrillation Other No family history of adverse response to anesthesia Social History Preferred Language: Welsh Communication Ability: Effective Assistant Manager Pt Required: No Beliefs That Will Affect Care: None marital status: Current Living Situation: Spouse current occupational status: employed current occupation: Registered nurse Other Information That Helps Us Care for You: No Feels Safe at Home: Yes Smoking Status: Never smoker Do You Dip or Chew Tobacco: No ; Second Hand Exposure: No ; Hx Alcohol Use: Yes Alcohol Intake Frequency: Holidays/Special Occasions Hx Substance Use: No Review of Systems All systems reviewed & are unremarkable except as noted in HPI & below Physical Exam Constitutional: WD/WN, vitals as above Eyes: PERRL, conjunctivae normal, anicteric sclerae ENMT: external ear and nose normal, oropharynx normal Neck: trachea midline, no thyromegaly Respiratory: normal respiratory effort Cardiovascular: RRR, no murmur, no edema Gastrointestinal (Abdomen): normal bowel sounds, soft, nontender, no hepatosplenomegaly Musculoskeletal: Physical examination of the right hip reveals decreased range of motion with flexion, internal and external rotation. There is significant groin pain with forced internal rotation of the hip his leg lengths are essentially equal. Psychiatric: A+Ox3, euthymic affect Results & Data Diagnostic Findings Radiographs of the right hip and pelvis demonstrate advanced avascular necrosis with joint space narrowing and [id number] articulation.
[~2019-10-01 10:03] MED LIST changes: -ACET-1256 PO; -AMOX875T PO; +BUPIVACAINE 0.5 % 5 MG/1 ML PF 10ML VIAL ONE; -CALC-354 PO; -DXY100 PO; -FERR1TAB61 PO; -FEXO1TAB49 PO; -IBUP-1451 PO; -LEVA1.258 INH; -LEVA45AE INH; -LORA-741 PO; +LR 500ML BOLUS, THEN 15ML/HR IV SCH; -MOME200A INH; -MULT-506 PO; -OMAL150S SC; -PANT40TA PO; -SUMA50TA15 PO; -TRAM-10 PO; -ZAFI1TAB11 PO; -ZOLP10TA6 PO; -[UNRECOGNIZED DRUG - CODE] PO
[2019-10-01] MEDS ORDERED: ROPIVACAINE 0.5% HCL/PF 150 MG, BUPIVACAINE 0.5% MPF 30 ML, EPINEPHrine 30MG/30ML (OR U... INSTIL SCH (10:30)
--- NOTE | 2019-10-01 10:58 | History & Physical Bridge Note ---
Date of Service October 01, 2019 History & Physical Bridge Note I have examined the patient, reviewed the History & Physical and in the interval since the performance of the History & Physical I have noted the following changes of clinical significance: no changes noted
[2019-10-01] MEDS ORDERED: VANCOMYCIN CONSULT ACTIVE PRN ×2 (11:28→17:23)
[2019-10-01] MEDS ORDERED: VANCOMYCIN HCL 1 GM/270 ML BAG ONE (11:29)
[2019-10-01] MEDS ORDERED: TRANEXAMIC ACID / 0.7% NACL 1,000 MG/100 ML BAG IV STA ×2 (11:39→11:41)
[2019-10-01] MEDS ORDERED: ePHEDrine sulfate 50 MG/ML AMP IV PRN (12:09)
[2019-10-01] MEDS ORDERED: ATROPINE SULFATE 0.1 MG/ML 10ML SYR IV PRN (12:09)
[2019-10-01] MEDS ORDERED: fentaNYL citrate 100 MCG/2 ML VIAL IV PRN (12:09)
[2019-10-01] MEDS ORDERED: ONDANSETRON INJ 2 MG/ML 2 ML VIAL IV PRN ×2 (12:09→17:23)
[2019-10-01] MEDS ORDERED: MIDAZOLAM HCL 1 MG/ML 2ML VIAL ONE (12:49)
[2019-10-01] MEDS ORDERED: DEXAMETHASONE SOD INJ 4 MG/ML VIAL ONE (12:49)
[2019-10-01] MEDS ORDERED: ONDANSETRON INJ 2 MG/ML 2 ML VIAL ONE (12:49)
[2019-10-01] MEDS ORDERED: PROPOFOL IV EMULSION 10 MG/ML 20 ML VIAL IV ONE ×3 (12:49→14:55)
[2019-10-01] MEDS ORDERED: LIDOCAINE HCL 2% 2 ML VIAL/AMP(20MG/ML) INFIL ONE (12:49)
[2019-10-01] MEDS ORDERED: fentaNYL citrate 100 MCG/2 ML VIAL ONE (12:53)
--- NOTE | 2019-10-01 15:16 | Operative Report ---
PG Post Operative Report Pre & Post Diagnosis Operation Date: 10/01/19 12:45 Pre-Op Diagnosis: Right Hip avascular necrosis Post-Op Diagnosis: Right Hip avascular necrosis I identified the patient and participated in the time-out.: Yes Procedure Operation Date: 10/01/19 12:45 Actual Procedures p Right Anterior Total Hip Arthroplasty(Right) - Sae Teran DO Surgeon Sae Teran DO Quality Supervisor Sae Leon PAC Estimated Blood Loss 250 Findings Consistent with Post-Op Diagnosis Specimens Right femoral head Complications none Disposition Disposition: Recovery Room Indications Nadine is a pleasant 64-year-old female who is been dealing with chronic increasing right hip and groin pain. X-rays and clinical examination have been diagnostic for avascular necrosis of the right hip. After failing conservative treatment, she elected proceed with a right anterior total hip arthroplasty. Description of Procedure Implants used I used a Biomet Taperloc total hip arthroplasty system with a size 10 high offset Taperloc stem, a 46 mm G7 cup with a 25mm screw, an E1 polyethylene liner, a 32 mm ceramic head with a -6 neck. Nadine arrived at the hospital for the above procedure. She was seen in the preoperative holding area and the operative extremity was identified and signed. She was given a spinal anesthetic, a preoperative antibiotic, and TXA. She was then taken back to the operating room and laid on the table in the supine position. She was given basic sedation. The operative leg was secured to a Puristst leg positioner. The hip was then prepped and draped in sterile fashio n. A timeout was done and the patient and the operative extremity was properly identified. An anterior approach was used. Dissection was taken down through the fascia and the tensor muscle belly was retracted laterally and the rectus was retracted medially. The circumflex vessels were identified and ligated. The capsule was then incised and tagged for later repair. The femoral neck was then cut and the femoral head was removed. The acetabulum was exposed. Time was spent doing a complete circumferential labral release. Sequential reaming of the acetabulum up to a size 45 reamer was done. Final reamings were done under fluoroscopy to ensure appropriate version. A Biomet 46 mm G7 cup was then impacted into place. A single 25 mm screw was placed. The E1 polyethylene liner was then snapped into place. Surrounding soft tissues were then injected with 100 cc of an orthopedic pain control cocktail. The proximal femur was then exposed. Sequential broaching up to a size 10 broach was done. Off that broach a size 32 head with a -6 neck was trialed. The hip was reduced and fluoroscopic images showed anatomic alignment of the implants in acceptable length. The broach was removed. The final size 10 high offset Taperloc stem was then impacted into place. A ceramic 32 mm head with a -6 neck was then impacted onto the stem and the hip was reduced. Final fluoroscopic images showed anatomic alignment of the hip. The capsule was then closed with #1 Vicryl suture. A dilute betadyne lavage was then done for 3 minutes. The joint was then irrigated with normal saline solution. The fascia was closed with #1 PDS suture. Skin was closed with 2-0 Vicryl, shayla, and a Blessing VAC dressing. She was then transferred to a hospital bed and taken to the post anesthesia care unit in stable condition. She tolerated the procedure well. Sae Leon PA-C, was present for the entire procedure. He was critical for patient positioning, prepping, draping, retraction exposure, wound closure and application of sterile dressing. I attest to the content of the Intraoperative Record and any orders documented therein. Any exceptions are noted below.
--- NOTE | 2019-10-01 15:23 | Fluoroscopy Report ---
FL hip RT 1V HISTORY: 64 years-old Female RT ANTERIOR TOTAL HIP right hip total joint arthroplasty COMPARISON: None TECHNIQUE: One spot fluoroscopic image of the right hip was obtained utilizing 21.3 seconds fluorosco py time FINDINGS: Right hip total joint arthroplasty demonstrates satisfactory alignment. Expected postoperative soft t issue swelling and deep tissue air is noted adjacent to the right hip without acute fracture, disloca tion or retained foreign body identified. IMPRESSION: Fluoroscopic assistance as above. Please see operative report for further details. ACT 112: Negative or not required by law. The above report was generated using voice recognition software. It may contain grammatical, syntax o r spelling errors. Electronically signed by: Best Lyons M.D. 10/01/2019 3:21 PM
--- NOTE | 2019-10-01 16:36 | Anesthesiology Progress Note ---
Date of Service October 01, 2019 Anesthesia Post Procedure Vital Signs Vital Signs: Temp Pulse Pulse Resp BP Pulse Ox 10/01/19 16:30 75 18 104/72 99 10/01/19 16:20 80 15 100/73 96 10/01/19 16:10 101 H 16 113/77 98 10/01/19 16:00 36.9 C 106 H 18 110/81 95 10/01/19 10:24 36.9 C 91 H 20 118/94 98 Pain Intensity Right Hip: Pain Intensity: 2 Transfer of Care Handoff Completed per policy Notes Mental Status: alert / awake / arousable Patient Amnestic to Procedure: Yes Nausea / Vomiting: adequately controlled Pain: adequately controlled Airway Patency, RR, SpO2: stable & adequate BP & HR: stable & adequate Hydration State: stable & adequate Neuraxial Anesthesia: was administered and sensory block is resolving Anesthetic Complications: no major complications apparent and Pt Satisfied with anesthetic care
--- NOTE | 2019-10-01 16:56 | XRay Report ---
AP PELVIS, CROSSTABLE LATERAL RIGHT HIP History: Right total hip arthroplasty. Degenerative arthritis. Postop. FINDINGS: The patient is status post a right total hip arthroplasty. The hardware is intact. No fract ure or dislocation. Skin shayla are in place. IMPRESSION: Right total hip arthroplasty. No evidence for hardware complication ACT 112: Negative or not required by law. Electronically signed by: Cullen Jason M.D. 10/01/2019 4:55 PM
[2019-10-01] MEDS ORDERED: MAGNESIUM HYDROXIDE SUSP 30 ML UDC PO PRN (17:23)
[2019-10-01] MEDS ORDERED: NALOXONE HCL 0.4 MG/1 ML VIAL/CARP IV PRN (17:23)
[2019-10-01] MEDS ORDERED: HYDROmorphone INJ 0.5 MG/0.5 ML SYR IV PRN (17:23)
[2019-10-01] MEDS ORDERED: PSEUDOEPHEDRINE HCL 120 MG PO SCH (17:23)
[2019-10-01] MEDS ORDERED: bisacodyL 10 MG SUPP PR PRN (17:23)
[2019-10-01] MEDS ORDERED: SUMAtriptan succinate 50 MG TAB PO PRN (17:23)
[2019-10-01] MEDS ORDERED: LEVALBUTEROL TARTRATE 15 GM HFA.AER.AD INH PRN (17:23)
[2019-10-01] MEDS ORDERED: METOCLOPRAMIDE HCL INJ 5 MG/ML 2 ML VIAL IV PRN (17:23)
[2019-10-01] MEDS ORDERED: OMALIZUMAB 150 MG SQ SCH (17:23)
[2019-10-01] MEDS ORDERED: LEVALBUTEROL HCL 1.25 MG/3 ML NEB INH PRN (17:23)
[2019-10-01] MEDS ORDERED: EPINEPHRINE ADULT AUTO-INJECT 0.3 MG SYR IM PRN (17:23)
[2019-10-01] MEDS ORDERED: METHOCARBAMOL 750 MG TABLET PO PRN (17:23)
[2019-10-01] MEDS ORDERED: HYDROCORTISONE HC 2.5% CRM 30GM TUBE EXT PRN (17:23)
[2019-10-01] MEDS: KETOROLAC 30 MG/ML VIAL IV SCH ×2 (18:41→23:13)
[2019-10-01] MEDS: SODIUM CHLORIDE 0.9% 1000ML 1,000 ML IV SCH (18:42)
[2019-10-01] MEDS ORDERED: SENNA 8.6 MG TAB PO SCH (21:00)
[2019-10-01] MEDS ORDERED: MONTELUKAST SODIUM 10 MG TABLET PO SCH (21:00)
[2019-10-01] MEDS ORDERED: LORazepam 1 MG TAB PO SCH (21:00)
[2019-10-01] MEDS: OXYCODONE HCL IR 5 MG TAB (IMMEDIATE RELEASE) PO PRN (21:20)
[2019-10-01] MEDS: ASPIRIN 81 MG ECTAB PO SCH (21:21)
[2019-10-01] MEDS: ACETAMINOPHEN 500 MG TAB PO SCH (21:22)
[2019-10-01] MEDS: METFORMIN HCL 500 MG TAB PO SCH (21:22)
[2019-10-01] MEDS: DOCUSATE SODIUM 100 MG CAP PO SCH (21:23)
[2019-10-01] MEDS ORDERED: VANCOMYCIN HCL 1,000 MG in SODIUM CHLORIDE 0.9% 250 ML IV SCH (22:00)
[2019-10-02] MEDS: SODIUM CHLORIDE 0.9% 1000ML 1,000 ML IV SCH (05:00)
[2019-10-02] MEDS: KETOROLAC 30 MG/ML VIAL IV SCH ×2 (05:01→12:15)
[2019-10-02] MEDS: ACETAMINOPHEN 500 MG TAB PO SCH (05:01)
[2019-10-02] MEDS ORDERED: VANCOMYCIN HCL 1,000 MG/270 ML BAG IV SCH (06:00)
--- NOTE | 2019-10-02 06:11 | Orthopedic Progress Note ---
Date of Service October 02, 2019 Assessment & Plan (1) History of right hip replacement: Overall she is doing fairly well. She will be seen by physical therapy today for ambulation and range of motion exercises. She is on aspirin for DVT prophylaxis. If she is doing very well today with physical therapy, and if she is able to go up and down stairs, she can be discharged home later today. However, if she is having a little difficulty with therapy then she can stay until tomorrow. Present on Admission?: Yes Subjective Nadine was seen and examined at bedside this morning. Overall she is doing very well. She is not having too much pain in the right hip. She says she was able to get some sleep last night for the first time in a long while. She has no complaints. Physical Exam Musculoskeletal: On physical examination of the right hip, the leg lengths are equal. Her Blessing VAC dressing is to suction. She has active dorsiflexion and plantarflexion of her right ankle. Results & Data ([facility]) Vital Signs (Past 12 Hours) Vital Signs Temp Pulse Resp BP Pulse Ox 10/02/19 03:24 37 C 97 H 16 129/80 96 10/01/19 23:47 36.8 C 93 H 22 118/79 97 10/01/19 19:01 36.7 C 89 16 120/79 99 Diagnostic Findings Postoperative x-rays of the right hip show the prosthesis to be in anatomic alignment without any evidence of fracture, dislocation, or loosening. PG Care Time/CCT Total # of Minutes Spent Total Time Spent with Patient: Total time spent is greater than 50% in coordination of care (as documented) at patient's floor/unit and/or counseling patient: Coding Level of Care Code None Diagnoses History of right hip replacement Z96.641
[2019-10-02 07:03] LABS: Hematocrit (blood only) 31.5 % (37-47); Hemoglobin 10.3 g/dL (12.0-16.0); Immature Granulocytes # (auto) 0.03 K/uL (0.00-0.02); Immature Granulocytes % (auto) 0.3 %; Lymphocytes # (auto) 1.46 K/uL (1.2-3.4); Lymphocytes % (auto) 15.4 %; Mean Corpuscular Hemoglobin 28.7 pg (25-34); Mean Corpuscular Hgb Conc 32.7 g/dL (32-36); Mean Corpuscular Volume 87.7 fL (80-100); Mean Platelet Volume 8.2 fL (7.4-10.4); Monocytes # (auto) 1.06 K/uL (0.11-0.59); Monocytes % (auto) 11.2 %; Neutrophils # (auto) 6.91 K/uL (1.4-6.5); Neutrophils % (auto) 73.1 %; Platelet Count 364 K/uL (130-400); RDW Coefficient of Variation 12.2 % (11.5-14.5); RDW Standard Deviation 39.7 fL (36.4-46.3); Red Blood Count 3.59 M/uL (4.2-5.4); White Blood Count 9.46 K/uL (4.8-10.8)
[2019-10-02 07:37] LABS: BUN Creatinine Ratio 20.8 (10-20); Calcium 8.8 mg/dl (8.5-10.1); Creatinine Clr Calc Pharmacy 73.6 ml/min; Est GFR (African American) 108.7; Est GFR (Non-African American) 93.8; Potassium 3.8 mmol/L (3.5-5.1)
[2019-10-02 07:48] VITALS: BP 114/77; PULSE 80; TEMP 98.8
[2019-10-02] MEDS ORDERED: dexAMETHasone 4 MG TAB PO SCH (08:00)
[2019-10-02] MEDS: OXYCODONE HCL IR 5 MG TAB (IMMEDIATE RELEASE) PO PRN ×2 (08:04→12:10)
[2019-10-02] MEDS: METFORMIN HCL 500 MG TAB PO SCH (08:05)
[2019-10-02] MEDS: DOCUSATE SODIUM 100 MG CAP PO SCH (08:07)
[2019-10-02] MEDS: ASPIRIN 81 MG ECTAB PO SCH (08:12)
--- NOTE | 2019-10-02 08:13 | Anesthesiology Progress Note ---
Date of Service October 02, 2019 Anesthesia Post Procedure Vital Signs Vital Signs: Temp Pulse Pulse Pulse Resp BP Pulse Ox 10/02/19 07:32 37.1 C 80 16 114/77 98 10/02/19 03:24 37 C 97 H 16 129/80 96 10/01/19 23:47 36.8 C 93 H 22 118/79 97 10/01/19 19:01 36.7 C 89 16 120/79 99 10/01/19 17:59 36.7 C 76 17 123/82 98 10/01/19 17:25 36.5 C 76 16 128/78 100 10/01/19 16:55 36.6 C 75 14 121/76 97 10/01/19 16:40 36.8 C 80 16 108/79 98 10/01/19 16:30 75 18 104/72 99 10/01/19 16:20 80 15 100/73 96 10/01/19 16:10 101 H 16 113/77 98 10/01/19 16:00 36.9 C 106 H 18 110/81 95 10/01/19 10:24 36.9 C 91 H 20 118/94 98 Pain Intensity Right Hip: Pain Intensity: 2 Notes Mental Status: alert / awake / arousable and participated in evaluation Patient Amnestic to Procedure: Yes Nausea / Vomiting: adequately controlled Pain: adequately controlled Airway Patency, RR, SpO2: stable & adequate BP & HR: stable & adequate Hydration State: stable & adequate Neuraxial Anesthesia: was administered and sensory block resolved Anesthetic Complications: no major complications apparent and Pt Satisfied with anesthetic care
[2019-10-02] MEDS ORDERED: MULTIVITAMIN TAB PO SCH (09:00)
[2019-10-02] MEDS ORDERED: PANTOprazole 40 MG TAB PO SCH (09:00)
[2019-10-02] MEDS ORDERED: FLUTICASONE/VILANTEROL 100/25MCG 14 PUFFS/INHALER INH SCH (09:00)
[2019-10-02] MEDS ORDERED: lisinopriL 5 MG TAB PO SCH (09:00)
[2019-10-02] MEDS ORDERED: FEXOFENADINE HCL 180 MG TAB PO SCH (09:00)
[2019-10-02 13:41] VITALS: O2SAT 97
--- NOTE | 2019-10-02 23:00 | Discharge Summary ---
Date of Service October 02, 2019 Admission HPI Per Admitting Provider Nadine is a pleasant 64-year-old female who is 4 months status post left rotator cuff repair. Unfortunately she has been dealing with a severe increase of right hip pain. She does have a history of long-term steroid use secondary to lung issues. Her right hip has gotten much worse over the past month or so. She is having trouble standing and walking. X-rays and clinical examination are diagnostic for advanced avascular necrosis of the right hip. After failing conservative treatment, she has elected to proceed with a right total hip arthroplasty. Principal Diagnosis Right total hip arthroplasty Discharge Data Allergies Allergy/AdvReac Type Severity Reaction Status Date / Time cat dander Allergy Unknown triggers Verified 10/01/19 10:22 asthma cefazolin [From Ancef] Allergy Unknown Rash Verified 10/01/19 10:22 Cephalosporins Allergy Unknown Rash Verified 10/01/19 10:22 dog dander Allergy Unknown triggers Verified 10/01/19 10:22 asthma house dust Allergy Unknown triggers Verified 10/01/19 10:22 asthma mold Allergy Unknown triggers Verified 10/01/19 10:22 asthma naproxen Allergy Unknown Rash (see Verified 10/01/19 10:22 comments) neomycin Allergy Unknown Rash Verified 10/01/19 10:22 Sulfa (Sulfonamide Allergy Unknown Rash Verified 10/01/19 10:22 Antibiotics) Consultations 10/02/19 08:00 Consult Case Management - Discharge Planning Routine Procedures Performed Operation Date: 10/01/19 12:45 Actual Procedures p Right Anterior Total Hip Arthroplasty(Right) - Sae Teran DO Ordered Studies 10/01/19 12:45 FL fluoroscopy <1hr Routine FL hip RT 1V Routine Hospital Course (1) History of right hip replacement: On October 01, 2019 Nadine arrived at [facility] and underwent a right anterior total hip arthroplasty without complication. She had a spinal anesthetic. Postoperatively she was started on aspirin for DVT prophylaxis and discharged to general orthopedic floors. Her hospital course was uneventful. On postop day #1 her H&H was stable and her pain was well controlled. She was able to participate well with physical therapy doing ambulation and range of motion exercises. She was then discharged home. She will follow-up with orthopedics in 2 weeks. Total Time Total Time Spent Total Time Spent (In Minutes): 20 Discharge Plan Discharge Items Patient Disposition: Home - Home Health Services Reason For Visit: Right Hip Degenerative Joint Disease Discharge Diagnosis: Right Total Hip Replacement Activity: As commented below Non-emergency contact: Surgeon Call non-emergency contact if: your wound has increased redness and your wound has increased drainage Follow-up/Referrals: Troy Tamayo MD [Primary Care Provider] - Diet: Regular Addtl Attending Provider Instructions: Activity and Therapy Recommendations: * If you are using [facility] then therapy will be provided at your home until they feel you have accomplished all of your goals. * If you are using [facility] then Physical Therapy will be provided until they feel you are ready to start Outpatient Physical Therapy. * If you are not using home therapy then Outpatient Physical Therapy should start about 3-5 days from your day of surgery. Therapy will last about 6-10 w eeks * You were shown a series of exercises in the hospital. Do these exercises three times each day including the exercises you were shown in physical therapy. * Get up and walk several times each day.~ For the first four weeks, try not to stand or walk for more than one hour at a time. If you do stand or walk for more than one hour, you will not hurt anything, but your leg will likely swell.~~ * As you feel comfortable, you may change from the walker or crutches to a cane and~then to independent walking. Medications: * Narcotic You will likely be sent home from the hospital with a prescription for the narcotic pain medication that worked best throughout your stay. * Aspirin Most patients will be required to take Aspirin 81mg twice a day for 6 weeks after surgery. This is obtained [id number]-[id number] and a prescription is not necessary. * Other medications may be prescribed for specific circumstances. If you have any questions, please call the office at . * Resume previous home medications unless otherwise instructed TEDs/Elastic Stockings: The white elastic stockings help limit swelling and prevent blood clots from forming in your legs. The more you wear them, the more they work. Wear them for six weeks. Dressing Care: You will likely have a purple VAC dressing after surgery. This dressing will keep the incision dry and promote early healing. After about 7 days the batteries will wear out and the VAC will lose suction. Simply remove the dressing at that time and throw everything away, including the small suction machine. Then, you may leave the shayla open to air or cover them with a dry dressing so they do not rub on your pants. The shayla will be removed at your 2 week follow-up appointment. Showering: You may shower immediately with the purple VAC dressing. Let the shower spray hit your opposite side and slowly pat the plastic dry. Do not soak the dressing. After the dressing is removed you may shower normally with the shayla exposed. Let soapy water run over the shayla and pat them dry. Things To Watch For: * Drainage from the incision site that occurs more than one week after your surgery. * Increased redness at the incision site. * Fever above 102 degrees Fahrenheit. * Unusual chest pain or shortness of breath. * Call [facility] at with any of the above problems Follow-Up Visit: Follow-up with Dr. Teran 2-3 weeks after your day of surgery. An appointment was probably scheduled when you signed-up for surgery in the office. If you have any questions call Office Instructions: More detailed instructions as well as Frequently Asked Questions were provided in a folder by our office when you signed-up for surgery. Please review these instructions when you get home. If you have any further questions or concerns, please feel free to call the office at [phone] Pending Studies at Discharge: No Stand-Alone Forms: My [facility] [address], Opioid Pain Management, Smoking Cessation Medications and DC Order Prescriptions: New aspirin 81 mg Tablet,Delayed Release (Dr/Ec) 81 mg PO BID 42 Days Qty: 0 RF: 0 oxycodone 5 mg Tablet 5 mg PO Q4H PRN (Reason: pain) Qty: 30 RF: 0 Continued metformin 1,000 mg tablet 1,000 mg PO BID Qty: 180 RF: 3 lorazepam 1 mg tablet 1 mg PO HS Qty: 30 RF: 0 zolpidem 10 mg tablet 10 mg PO HS Qty: 30 RF: 0 oxycodone-acetaminophen [Percocet] 5-325 mg tablet 1 tab PO Q6H PRN (Reason: pain) Qty: 20 RF: 0 epinephrine 0.3 mg/0.3 mL auto-injector 0.3 mg IM UD PRN (Reason: ZOLAIR USE) RF: 0 hydrocortisone 2.5 % cream with perineal applicator [address] DAILY PRN (Reason: hemorrhoids) Qty: 28 RF: 11 zafirlukast 20 mg tablet 20 mg PO BID Qty: 180 RF: 3 ibuprofen 800 mg tablet 800 mg PO TID Qty: 270 RF: 3 calcitriol 0.5 mcg capsule 0.5 mcg PO DAILY Qty: 90 RF: 3 pseudoephedrine HCl 120 mg tablet extended release 120 mg PO Q12H Qty: 60 RF: 11 (DME) BD Integra Syringe 3 mL 25 gauge x 5/8" syringe See Rx Instructions .ROUTE .MEDSUPPLY Qty: 100 RF: 5 ferrous sulfate 325 mg (65 mg iron) tablet 325 mg PO DAILY RF: 0 ondansetron HCl 4 mg tablet 4 mg PO Q6H PRN (Reason: Nausea) Qty: 15 RF: 0 fexofenadine 180 mg tablet 180 mg PO QAM RF: 0 lisinopril 5 mg tablet 5 mg PO QAM RF: 0 nvtgzvqhzwax-qtcignmg-ndvlod tablet 1 tab PO DAILY RF: 0 cholecalciferol (vitamin D3) 2,000 unit capsule 2,000 units PO DAILY Qty: 30 RF: 0 levalbuterol tartrate [Xopenex HFA] 45 mcg/actuation HFA aerosol inhaler 2 puffs INH Q4H PRN (Reason: Shortness Of Breath) RF: 0 levalbuterol HCl 1.25 mg/3 mL solution for nebulization 1.25 mg inhalation UD PRN (Reason: ASTHMA) RF: 0 fluticasone propion-salmeterol 250-50 mcg/dose blister with device 1 puffs INH BID RF: 0 PreserVision AREDS [id number] mukp-kd-yupm capsule 1 cap PO BID RF: 0 methocarbamol 750 mg tablet 750 mg PO BID PRN (Reason: MUSCLE SPASMS) RF: 0 cyanocobalamin (vitamin B-12) 1,000 mcg/mL solution 100 mcg IM MONTHLY RF: 0 omalizumab 150 mg recon soln 150 mg subcut MONTHLY RF: 0 sumatriptan succinate 50 mg tablet 50 mg PO UD PRN (Reason: Migraine Headache) RF: 0 pantoprazole 20 mg tablet,delayed release (DR/EC) 20 mg PO QAM RF: 0 Discontinued tramadol 50 mg tablet 50 mg PO Q6H PRN (Reason: pain) Qty: 30 RF: 0 tramadol 50 mg tablet 100 mg PO Q8H PRN (Reason: pain) RF: 0 Discharge Orders: Discharge Order (Routine); Ordered 10/02/19 Ordered By: Sae Kraft/Other Patient Handouts: Surgery Prevent DVT After Admission Data Admit Date/Time: 10/01/19 16:04 Attending Provider: Sae Teran Admit Provider: Sae Teran Primary Care Provider: Troy Tamayo Other Interventions: Discharge Summary Assessment (RN) Last Done: 10/02/19 12:32 DC Date/Time DO NOT enter until pt leaves facility: 10/02/19 14:51 Coding Level of Care Code D/C Day Management <30 mins Diagnoses History of right hip replacement Z96.641
== END 2019-10-02 14:51 | disposition home health service (06) | DRG 470 ==
LOC: ASU 10:03 → INTOOBSV 16:04 → 3E 16:04